=== PATIENT | male | born 1945 | race Caucasian/White ===

== ENCOUNTER 2022-09-08 14:15 | Inpatient (IN) ==
[2022-09-08] MEDS ORDERED: IOPAMIDOL 100 ML BOTTLE IV ONE (14:16)
--- NOTE | 2022-09-08 14:23 | Emergency Department Note ---
HPI General Chief complaint: Shortness of Breath/Dyspnea Stated complaint: Possible sepsis Time Seen by Provider: 09/08/22 14:18 Mode of arrival: ambulatory History of Present Illness HPI Narrative: Narrative: This is a 77-year-old male presents emergency department with a history of A-fib on Eliquis also has a pacemaker COPD pulmonary hypertension, CHF GERD and hyperlipidemia, history of lung cancer with complaints of shortness of breath. At the beginning of the month he was treated for pneumonia and placed on amoxicillin. He thought that maybe he had a little bit better for a bit but then started feeling not well again. On 09/04/2022 he was seen at urgent care got a chest x-ray and there was an impression increasing opacification laterally at the right lung base. Much of this is due to scar however patient may be developing mild pneumonia in the right lower lobe there was also concern that he was developing cellulitis over his right posterior scapula. They decided to put him on Keflex which is interesting although that does not have great coverage for pneumonia. The patient then was seen here yesterday and although Dr. Sotelo note is not done according to the patient he switched him from the Keflex to azithromycin for the antibiotic for the pneumonia. He also did a bedside ultrasound of the area of concern over his right scapula. I do not know those results since there is no documentation of it. The area is quite tender and is bulging slightly. The patient reports that that is the area where he had the radiations always been a bit tender but its been getting worse recently. He does not think that there is usually a mound/mass there. And he does not know when it started. He reports that that he has been weak over this last month and he is just not getting any better. He does feel short of breath at times and usually wears his oxygen just at night but he says sometimes during the day over the last month he has had to use his oxygen for dyspnea. He also reports that he has not had much of an appetite and has been losing weight about 15 pounds this month. He reports that sometimes he gets the sharp pain in his right upper quadrant and last time he had it was last night he currently does not have any abdominal pain. His last fever of about 100 was last week. He has not had any other fevers or chills since then. No nausea or vomiting. He has had some dysuria and urinary frequency. He tells me also that he has been having blood in his stool where there is like a ribbon within the stool as well as what he describes as hemorrhoid blood as well. [facility]. Related Data Home Medications Medication Instructions Recorded Confirmed multivitamin 1 tab-cap PO QDAY 12/26/16 09/08/22 ipratropium 0.5 mg-albuterol 3 mg 3 ml inhalation Q6H PRN 02/13/20 09/08/22 (2.5 mg base)/3 mL nebulization soln propafenone 150 mg tablet 150 mg PO BID 02/13/20 09/08/22 rosuvastatin 20 mg tablet 20 mg PO QDAY 02/13/20 09/08/22 cyanocobalamin (vitamin B-12) 1,000 mcg PO QDAY 07/11/21 09/08/22 1,000 mcg capsule spironolactone 25 mg tablet 25 mg PO QAM 07/11/21 09/08/22 apixaban 5 mg tablet 5 mg PO BID 07/23/21 09/08/22 pantoprazole 40 mg tablet,delayed 40 mg PO QAM 07/23/21 09/08/22 release sildenafil 50 mg tablet (Viagra) 50 mg PO QDAY PRN 11/21/21 09/08/22 Previous Rx's Medication Instructions Recorded guaifenesin 600 mg tablet, 600 mg PO BID #60 tabs 07/23/21 extended release 12 hr albuterol sulfate 90 mcg/actuation 2 puff inhalation Q6H PRN 11/14/21 aerosol inhaler shortness of breath or wheezing #8.5 grams tramadol 50 mg tablet 50 mg PO Q8H PRN pain #10 tabs 09/04/22 cephalexin 500 mg capsule 500 mg PO Q6H 5 days #20 caps 09/05/22 azithromycin 250 mg tablet See Rx Instructions PO .COMPLEX #6 09/07/22 (Zithromax Z-Chuy) tabs Allergies Allergy/AdvReac Type Severity Reaction Status Date / Time tetanus and diphtheria Allergy Severe Anaphylaxis Verified 09/08/22 13:43 toxoids atorvastatin Allergy Intermediate hand Verified 09/08/22 13:43 swelling Flecainide Allergy Mild Insomnia Verified 09/08/22 13:43 hydrocodone Allergy Mild Nausea Verified 09/08/22 13:43 [From Lorcet (hydrocodone)] Formoterol [From Symbicort] Allergy Unknown Unknown Verified 09/08/22 13:43 lisinopril Allergy Unknown Palpitation Verified 09/08/22 13:43 s [id number]-IRQ-[id number] Reductase Allergy Unknown Itching Verified 09/08/22 13:43 Inhibitor budesonide [From Symbicort] AdvReac Unknown ineffective/no Verified 09/08/22 13:43 allergy Pain Meds Allergy Mild Nausea Uncoded 09/08/22 13:43 Review of Systems ROS ROS Narrative: Narrative: All systems ED: reviewed and negative except as stated. [facility] Narrative Patient History Narrative: Narrative: Medical/Surgical/Family History All Active Problems (Updated 09/08/22 @ 17:44 by Davis Blanco PA-C) Pneumonia (Acute) Anemia (Acute) GI (gastrointestinal bleed) (Acute) Opacity of lung on imaging study (Acute) Shortness of Breath (Acute) Lightheadedness (Acute) Weakness (Acute) Chest pain (Acute) Dysphagia (Chronic) History of tobacco use (Chronic) History of lung cancer (Chronic) Nocturnal hypoxemia (Chronic) Difficulty clearing secretions (Chronic) History of pleural effusion (Chronic) Sick sinus syndrome (Chronic) History of tobacco abuse (Chronic) Dyslipidemia (Chronic) Non-small cell lung cancer (Chronic) Small vessel disease, cerebrovascular (Chronic) Exposure to radiation (Chronic) Abscess of intestine (Chronic) Refractive errors (Chronic) Hyperlipidemia (Chronic) Anemia (Chronic) Hypotension (Chronic) Cardiac pacemaker in situ (Chronic) intermediate current use of anticoagulant (Chronic) Dry eyes (Chronic) Age-related cataract (Chronic) COPD (chronic obstructive pulmonary disease) (Chronic) Localized osteoarthrosis (Chronic) Basal cell carcinoma of cheek (Chronic) Atrial fibrillation (Chronic) Rash (Chronic) CHF (congestive heart failure) (Chronic) GERD (gastroesophageal reflux disease) (Chronic) Pulmonary hypertension (Chronic) Left flank pain (Chronic) LLQ abdominal pain (Chronic) Acute nausea with nonbilious vomiting (Chronic) Dyspnea (Chronic) Left sided abdominal pain (Chronic) Nausea and vomiting (Chronic) Acute bacterial sinusitis (Chronic) Medical History Abscess of intestine Acute bacterial sinusitis Acute nausea with nonbilious vomiting Age-related cataract Anemia Atrial fibrillation Basal cell carcinoma of cheek Cardiac pacemaker in situ CHF (congestive heart failure) COPD (chronic obstructive pulmonary disease) Dry eyes Dyslipidemia Dyspnea Exposure to radiation GERD (gastroesophageal reflux disease) History of left heart catheterization History of pleural effusion History of tobacco abuse Hyperlipidemia Hypotension Left flank pain Left sided abdominal pain LLQ abdominal pain Localized osteoarthrosis intermediate current use of anticoagulant Nausea and vomiting Non-small cell lung cancer Pulmonary hypertension Rash Refractive errors Sick sinus syndrome Small vessel disease, cerebrovascular Surgical History History of surgery Ablation for atrial fibrillation History of surgery Pacemaker replacements in 2013 and 2019 Family History Mother , age 85 Primary oral squamous cell carcinoma Alzheimer's disease Father , age 92 CHF (congestive heart failure) Renal failure Skin cancer Grandmother Breast cancer Grandfather Brain cancer Aunt Breast cancer Social History Smoking Status: Former smoker Alcohol Intake Frequency: former alcohol drinker Substance Use: does not use Exam Narrative Narrative: Narrative: General: Alert, in no acute distress, pale Head: No trauma normocephalic Eyes: PERRLA, EOMs intact no scleral icterus or scleral injection Neck: Full range of motion, no midline tenderness ENT: Moist mucous membranes, uvula is midline. No sign of peritonsillar abscess or Haritha's angina. Cardiovascular: Regular rate and rhythm patient does have a long standing murmur. Respiratory: Absent lung sounds in right lower lobe otherwise clear to auscultation bilaterally. No rhonchi rales or wheezes, no respiratory distress Abdomen pelvis: Abdomen is soft and nontender to palpation. There is no guard ing no rebound tenderness. Negative Acevedo sign. No tenderness over McBurney's point. Neuro: Patient is alert and oriented x3 Psych: Normal affect, normal mood Skin: Warm, no rash, normal color Course Vital Signs Vital signs: Vital Signs Temperature 98.4 F 09/08/22 14:18 Pulse Rate 87 09/08/22 14:18 Respiratory Rate 22 09/08/22 14:18 Blood Pressure 119/64 09/08/22 14:18 Pulse Oximetry (%) 97 09/08/22 14:18 Oxygen Delivery Method Room Air 09/08/22 14:18 Temperature 98.4 F 09/08/22 14:18 Pulse Rate 83 09/08/22 17:46 Respiratory Rate 23 H 09/08/22 16:11 Blood Pressure 113/52 09/08/22 17:46 Pulse Oximetry (%) 93 09/08/22 17:46 Oxygen Delivery Method Room Air 09/08/22 14:18 MDM MDM Narrative Medical decision making narrative: Narrative: Differential diagnosis: Pneumonia, sepsis, pulmonary mass, abdominal mass, GI bleed, UTI Independent lab ordered and reviewed by me: The CBC shows a leukocytosis to 13.0 with left shift, patient H&H is low at 7.0 and 22.2 last H&H June 13, 2021 was 12.8 and 39.9 CMP is unremarkable VBG shows alkalosis with a base excess of 8.0 Lactic acid is 0.9 low suspicion for sepsis Procalcitonin is 0.22 UA shows no sign of infection CT of abdomen pelvis IMPRESSION: 1. Subtotal pneumonectomy in the right lung, as treatment for lung carcinoma with volume loss and dense consolidated fibrosis in the residual right lung-as previously seen. A small patchy infiltrate is posterior right lower lobe is new. No evidence recurrent malignancy. 2. MALUNIFIED old fractures the right upper ribs with associated sclerosis. There is also associated sclerosis of the right scapular body. 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 There is soft tissue swelling over the lateral scapular border which is unchanged and presumably fibrosis or edema. 3. No abnormality seen in the abdomen or pelvis 4. 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 The patient has also been having blood in his stool for the last month. He has a outpatient [facility] I think that this is most likely the reason for his dyspnea and overall weakness. He is on Eliquis currently for A-fib. I spoke with Dr. Zamora our GI provider who would like to admit the patient for IV antibiotics and then he will scope him in the morning. I think that this is reasonable since that the patient has been having a bleed for the last month and is hemodynamically stable not tachycardic or hypotensive and is a not hypoxic. I spoke with the hospitalist Dr. Cuevas who agreed to admit the patient for further evaluation and treatment Lab Data 09/08/22 15:40 09/08/22 15:40 Labs: Lab Results 09/08/22 09/08/22 09/08/22 Range/Units 14:57 15:35 15:40 WBC 13.0 H (4.5-11.0) K/mcL RBC 2.20 L (4.63-6.08) M/mcL Hgb 7.0 L* (13.7-17.5) g/dL Hct 22.2 L (40.1-51.0) % MCV 100.9 H (80.0-100.0) fL MCH 31.8 (26.0-34.0) pg MCHC 31.5 (31.0-36.0) g/dL RDW 13.4 (11.5-14.5) % Plt Count 610 H (140-440) K/mcL MPV 8.6 L (8.8-12.5) fL Immature Gran % (Auto) 0.8 H (0.0-0.5) % Neut % (Auto) 82.7 H (38.0-78.0) % Lymph % (Auto) 8.0 L (15.5-49.0) % [place] % (Auto) 7.8 (1.0-12.0) % Eos % (Auto) 0.3 (0.0-7.0) % Baso % (Auto) 0.4 (0.0-2.0) % Lymph # (Auto) 1.04 L (1.50-4.80) K/mcL [place] # (Auto) 1.02 H (0.10-0.90) K/mcL Eos # (Auto) 0.04 (0.00-0.70) K/mcL Baso # (Auto) 0.05 (0.00-0.30) K/mcL Immature Gran # 0.11 H (0.00-0.05) K/mcl Absolute Neutrophils 10.75 H (1.80-8.00) K/mcL POC VBG pH 7.44 H (7.32-7.42) POC VBG pCO2 at Temp 47.3 (41-51) POC VBG pO2 14 L (25-40) POC VBG HCO3 32.2 H (24-28) POC VBG Total CO2 34.0 H (25-29) POC Venous O2 Sat 18.0 L (40-70) POC VBG Base Excess 8.0 H* (-2-2) VBG Lactic Acid 0.9 (0.5-2) Sodium (133-145) mmol/L Potassium (3.3-5.1) mmol/L Chloride (96-108) mmol/L Carbon Dioxide (22-30) mmol/L Anion Gap (8.0-16.0) BUN (8-23) mg/dL Creatinine (0.7-1.2) mg/dL POC Creatinine (0.6-1.2) GFR Calculation Glucose (70-105) mg/dL Calcium (8.6-10.4) mg/dL Total Bilirubin (0.1-1.0) mg/dL AST (<40) U/L ALT (<40) U/L Alkaline Phosphatase (39-117) U/L Total Protein (5.9-8.4) gm/dL Albumin (3.2-5.2) gm/dL Globulin (2.2-3.7) gm/dL Albumin/Globulin Ratio (1.0-2.3) Procalcitonin (<0.10) ng/mL Urine Color Yellow Urine Appearance Clear (Clear) Urine pH 6.0 (5.0-9.0) Ur Specific [place] 1.013 (1.000-1.035) Urine Protein Negative (Negative) mg/dL Urine Glucose (UA) Negative (Negative) mg/dL Urine Ketones Negative (Negative) mg/dL Urine Occult Blood Negative (Negative) mg/dL Urine Nitrate Negative (Negative) Urine Bilirubin Negative (Negative) mg/dL Urine Urobilinogen Negative mg/dL Ur Leukocyte Esterase Negative (Negative) /uL Urine RBC < 1 (0-3) /hpf Urine WBC 0 (0-4) /hpf Ur Squamous Epith Cells 0 (0-4) /hpf Urine Bacteria None (0) /hpf Ur Culture Indicated? No 09/08/22 09/08/22 09/08/22 Range/Units 15:40 15:40 15:43 WBC (4.5-11.0) K/mcL RBC (4.63-6.08) M/mcL Hgb (13.7-17.5) g/dL Hct (40.1-51.0) % MCV (80.0-100.0) fL MCH (26.0-34.0) pg MCHC (31.0-36.0) g/dL RDW (11.5-14.5) % Plt Count (140-440) K/mcL MPV (8.8-12.5) fL Immature Gran % (Auto) (0.0-0.5) % Neut % (Auto) (38.0-78.0) % Lymph % (Auto) (15.5-49.0) % [place] % (Auto) (1.0-12.0) % Eos % (Auto) (0.0-7.0) % Baso % (Auto) (0.0-2.0) % Lymph # (Auto) (1.50-4.80) K/mcL [place] # (Auto) (0.10-0.90) K/mcL Eos # (Auto) (0.00-0.70) K/mcL Baso # (Auto) (0.00-0.30) K/mcL Immature Gran # (0.00-0.05) K/mcl Absolute Neutrophils (1.80-8.00) K/mcL POC VBG pH (7.32-7.42) POC VBG pCO2 at Temp (41-51) POC VBG pO2 (25-40) POC VBG HCO3 (24-28) POC VBG Total CO2 (25-29) POC Venous O2 Sat (40-70) POC VBG Base Excess (-2-2) VBG Lactic Acid (0.5-2) Sodium 134 (133-145) mmol/L Potassium 5.0 (3.3-5.1) mmol/L Chloride 98 (96-108) mmol/L Carbon Dioxide 29 (22-30) mmol/L Anion Gap 7.0 L (8.0-16.0) BUN 15 (8-23) mg/dL Creatinine 0.9 (0.7-1.2) mg/dL POC Creatinine 1.1 (0.6-1.2) GFR Calculation 82 Glucose 98 (70-105) mg/dL Calcium 9.1 (8.6-10.4) mg/dL Total Bilirubin 0.3 (0.1-1.0) mg/dL AST 28 (<40) U/L ALT 37 (<40) U/L Alkaline Phosphatase 165 H (39-117) U/L Total Protein 7.1 (5.9-8.4) gm/dL Albumin 2.8 L (3.2-5.2) gm/dL Globulin 4.3 H (2.2-3.7) gm/dL Albumin/Globulin Ratio 0.7 L (1.0-2.3) Procalcitonin 0.22 H (<0.10) ng/mL Urine Color Urine Appearance (Clear) Urine pH (5.0-9.0) Ur Specific [place] (1.000-1.035) Urine Protein (Negative) mg/dL Urine Glucose (UA) (Negative) mg/dL Urine Ketones (Negative) mg/dL Urine Occult Blood (Negative) mg/dL Urine Nitrate (Negative) Urine Bilirubin (Negative) mg/dL Urine Urobilinogen mg/dL Ur Leukocyte Esterase (Negative) /uL Urine RBC (0-3) /hpf Urine WBC (0-4) /hpf Ur Squamous Epith Cells (0-4) /hpf Urine Bacteria (0) /hpf Ur Culture Indicated? Discharge Plan Patient/Caregiver Discharge Instructions Pt seen by SEED BUYER/PA only: Yes Clinical Impression: Pneumonia, Anemia, GI (gastrointestinal bleed) Activity: increase activity as tolerated Patient Disposition: Xfer As Inpt ([facility]) Condition: Serious Follow up with: Juan Craig ARNP [Primary Care Provider] - Prescriptions: No Action albuterol sulfate 90 mcg/actuation HFA aerosol inhaler 2 puff inhalation Q6H PRN (Reason: shortness of breath or wheezing) Qty: 8.5 11RF cyanocobalamin (vitamin B-12) 1,000 mcg capsule 1,000 mcg PO QDAY spironolactone 25 mg tablet 25 mg PO QAM multivitamin capsule 1 tab-cap PO QDAY pantoprazole 40 mg tablet,delayed release (DR/EC) 40 mg PO QAM sildenafil [Viagra] 50 mg tablet 50 mg PO QDAY PRN Rx Instructions: administer 30 minutes to 4 hours before activity tramadol 50 mg tablet 50 mg PO Q8H PRN (Reason: pain) Qty: 10 0RF cephalexin 500 mg capsule 500 mg PO Q6H 5 Days Qty: 20 0RF ipratropium-albuterol 0.5 mg-3 mg(2.5 mg base)/3 mL solution for nebulization 3 ml INHALATION Q6H PRN rosuvastatin 20 mg tablet 20 mg PO QDAY propafenone 150 mg tablet 150 mg PO BID apixaban 5 mg tablet 5 mg PO BID Breztri Aerosphere 160-9-4.8 mcg/actuation HFA aerosol inhaler 0RF guaifenesin 600 mg tablet extended release 12hr 600 mg PO BID Qty: 60 2RF fluticasone furoate-vilanterol [Breo Ellipta] 100-25 mcg/dose blister with device 0RF azithromycin [Zithromax Z-Chuy] 250 mg tablet See Rx Instructions .ROUTE .COMPLEX Qty: 6 0RF Rx Instructions: For 250 mg dose pack: take 500 mg today (day 1), then 250 mg for 4 days (days 2-5) For this patient encounter, I reviewed the midlevel providers documentation, medical decisionmaking, and treatment plan. I discussed the case with the midlevel provider, although I did not personally evaluate the patient.
[2022-09-08 16:12] LABS: Appearance,Urine CLEAR (Clear); Bilirubin,Urine Negative (Negative); Color,Urine YELLOW; Culture Indicated,Urine No; Glucose,Urine (UA) Negative (Negative); Ketones,Urine Negative (Negative); Leukocyte Esterase,Urine Negative /uL (Negative); Nitrate,Urine Negative (Negative); Protein,Urine Negative (Negative); Specific Gravity,Urine 1.013 (1.000-1.035); Urine Blood Negative (Negative); Urine RBC < 1 /hpf (0-3); Urine Squamous Epithelial Cell 0 /hpf (0-4); Urine WBC 0 /hpf (0-4); Urobilinogen,Urine Negative
[2022-09-08 16:13] LABS: Basophils # (Auto) 0.05 K/mcL (0.00-0.30); Basophils % (Auto) 0.4 % (0.0-2.0); Eosinophils # (Auto) 0.04 K/mcL (0.00-0.70); Eosinophils % (Auto) 0.3 % (0.0-7.0); Hematocrit 22.2 % (40.1-51.0); Lymphocytes # (Auto) 1.04 K/mcL (1.50-4.80); Mean Cell Volume 100.9 fL (80.0-100.0); Mean Corpuscular HGB Conc 31.5 g/dL (31.0-36.0); Mean Platelet Volume 8.6 fL (8.8-12.5); Monocytes # (Auto) 1.02 K/mcL (0.10-0.90); Monocytes % (Auto) 7.8 % (1.0-12.0); Neutrophils % (Auto) 82.7 % (38.0-78.0); Platelet Count 610 K/mcL (140-440); Red Cell Distribution Width 13.4 % (11.5-14.5)
[2022-09-08 16:27] LABS: ALT/SGPT 37 U/L (<40); AST/SGOT 28 U/L (<40); Albumin 2.8 gm/dL (3.2-5.2); Albumin/Globulin Ratio 0.7 (1.0-2.3); Alkaline Phosphatase 165 U/L (39-117); Bilirubin,Total 0.3 mg/dL (0.1-1.0); Blood Urea Nitrogen 15 mg/dL (8-23); Calcium 9.1 mg/dL (8.6-10.4); Carbon Dioxide 29 mmol/L (22-30); Chloride 98 mmol/L (96-108); Globulin 4.3 gm/dL (2.2-3.7); Glomerular Filtration Rate 82; Glucose 98 mg/dL (70-105)
[2022-09-08] MEDS ORDERED: 0.9 % SODIUM CHLORIDE 250 ML IV SCH (16:45)
--- NOTE | 2022-09-08 17:09 | Cat Scan Report ---
CLINICAL INFORMATION: Right parascapular mass right upper quadrant pain weight loss. Pneumonia history of right lobectomy for lung cancer. COMPARISON: Chest abdomen and pelvic CT 08/07/2022 TECHNIQUE: Enteric contrast was utilized. 80 cc of Isovue-370 were injected intravenously, and 50 seconds later, 0.625 mm helical slices were obtained from the lung apices through the subtrochanteric regions of the femurs. Following reconstruction, 2.5 mm sagittal, coronal and axial reformatted images were processed and reviewed at multiple windows and levels. 7 mm MIP reconstructions were obtained through the lungs to optimize nodule detection.The exam was performed using radiation dose optimization techniques including, but not limited to, automated exposure control, adjustment of the mA and/or kV according to patient size and use of iterative reconstruction technique. FINDINGS: Pulmonary parenchymal windows show right subtotal pneumonectomy changes with associated volume loss featuring marked elevation of the right diaphragm and right shift of the cardiomediastinal silhouette. Dense fibrotic consolidation in the residual right upper, right middle and lower lobes are identical to the previous exam. There is a small patchy infiltrate in the periphery of the right lower lobe which is new from the previous exam. Moderate centrilobular emphysema is seen in the left lung as before. Mediastinal windows show the heart is grossly normal in size and configuration. Very heavy calcific plaque present within the mid LAD coronary artery. There is aortic valve calcification. Pacemaker leads in satisfactory position. The pulmonary arteries are normal diameter without evidence of embolus. Thoracic aorta is also normal diameter and well-opacified. There is no adenopathy in the mediastinal, hilar or axillary regions. Esophagus is grossly normal. The thyroid is unremarkable. Abdominal images show the gallbladder and bile ducts, liver, both kidneys, adrenal glands, spleen, pancreas and aorta, including aortic branches, are normal in size, configuration and attenuation without focal lesion. There is no free air, free fluid or adenopathy. Pelvic images show normal urinary bladder prostate and seminal vesicles. The stomach, small bowel, appendix region and large bowel are grossly normal. Bone windows show right thoracotomy with multiple nonunified old fractures of the posterior right first through sixth ribs with associated sclerosis be related to radiation.. Moderate sclerosis in the right scapular body is also likely related to prior radiation. No change Soft tissue thickening overlying the medial scapula is unchanged and likely represents fibrosis. No osseous abnormality seen in the abdomen or pelvis. IMPRESSION: 1. Subtotal pneumonectomy in the right lung, as treatment for lung carcinoma with volume loss and dense consolidated fibrosis in the residual right lung-as previously seen. A small patchy infiltrate is posterior right lower lobe is new. No evidence recurrent malignancy. 2. MALUNIFIED old fractures the right upper ribs with associated sclerosis. There is also associated sclerosis of the right scapular body. 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 There is soft tissue swelling over the lateral scapular border which is unchanged and presumably fibrosis or edema. 3. No abnormality seen in the abdomen or pelvis 4. 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
[2022-09-08] MEDS ORDERED: AZITHROMYCIN 500 MG in DEXTROSE 5% IN WATER 250 ML IV ONE (17:25)
[2022-09-08] MEDS ORDERED: cefTRIAXone 1 GM VIAL IV ONE (17:25)
[2022-09-08] MEDS ORDERED: ACETAMINOPHEN 325 MG TABLET PO ONE (18:43)
--- NOTE | 2022-09-08 19:21 | Internal Med History&Physical ---
HPI History of Present Illness Patient information: Note initiated : 09/08/22 at 7:09 pm Service Date, if different from initiated Date: [] Patient: Sandro Viveros a 77 y/o M admitted on for Possible sepsis. Chief Complaint: [shortness of breath, cough] Chief complaint: shortness of breath, cough History of present illness: Mr. Viveros is a 77 year old M history of lung cancer status post chemoradiation, atrial fibrillation on Eliquis, COPD, dyslipidemia, presenting with 3-week history of shortness of breath, productive cough, fever, chills. He was being diagnosed in outpatient clinic with pneumonia and was being prescribed Keflex for 10 days for which he finished the therapy but he still coming of worsening symptoms including shortness of breath, productive cough with clear sputum, subjective fever and chills. He was also having right shoulder pain. [facility] prescribed additional antibiotics with azithromycin which he just started today. In additions, patient also has experienced black stool bloody stool ever since he started taking Keflex. He is also on Eliquis and he last took it today for atrial fibrillation's. He saw GI specialist Dr. Fletcher who was trying to schedule outpatient elective colonoscopy but it has not happened yet. Vital signs at ED presentation with normal meds. Labs significant for leukocytosis with WBC 13.0. Hemoglobin and hematocrit 7.0 and 22.2, respectively. Serum lactic acid 0.9, procalcitonin level 0.22. Respiratory panel with COVID, influenza a and B, and RSV pending. Chest x-ray showing posterior right lower lobe infiltrate suggesting of new pneumonia. Admission request is called for pneumonia as well as symptomatic rectal bleeding, likely lower GI bleeding. Constitutional Constitutional: Present chills, fatigue, fever(s) and weakness; Absent excessive sweating EENT Eyes: Absent blurry vision, change in vision, loss of vision or other visual disturbances Ears: Absent decreased hearing or tinnitus Nose, mouth and throat: Absent abnormal hearing, dry mouth, headache(s), nasal congestion or sore throat Cardiovascular Cardiovascular: Absent chest pain, chest pain at rest, edema, irregular heart rhythm or palpatations Respiratory Respiratory: Present cough, dyspnea and excessive phlegm production; Absent wheezing Gastrointestinal Gastrointestinal: Absent abdominal pain, constipation, diarrhea, nausea or vomiting Additional comments: Black and bloody stool Musculoskeletal Musculoskeletal: Absent back pain, deformity, limited range of motion, muscle cramps, muscle weakness or numbness Integumentary Integumentary: Absent lesions, rash or wounds Neurological Neurological: Absent focal weakness, headache(s) or numbness Psychiatric Psychiatric: Absent anxiety, depression or hallucinations PFSH PFSH All Active Problems (Updated 09/08/22 @ 19:24 by Percy Cuevas MD) COPD exacerbation (Acute) Pneumonia (Acute) Anemia (Acute) GI (gastrointestinal bleed) (Acute) Opacity of lung on imaging study (Acute) Shortness of Breath (Acute) Lightheadedness (Acute) Weakness (Acute) Chest pain (Acute) Dysphagia (Chronic) History of tobacco use (Chronic) History of lung cancer (Chronic) Nocturnal hypoxemia (Chronic) Difficulty clearing secretions (Chronic) History of pleural effusion (Chronic) Sick sinus syndrome (Chronic) History of tobacco abuse (Chronic) Dyslipidemia (Chronic) Non-small cell lung cancer (Chronic) Small vessel disease, cerebrovascular (Chronic) Exposure to radiation (Chronic) Abscess of intestine (Chronic) Refractive errors (Chronic) Hyperlipidemia (Chronic) Anemia (Chronic) Hypotension (Chronic) Cardiac pacemaker in situ (Chronic) longterm current use of anticoagulant (Chronic) Dry eyes (Chronic) Age-related cataract (Chronic) COPD (chronic obstructive pulmonary disease) (Chronic) Localized osteoarthrosis (Chronic) Basal cell carcinoma of cheek (Chronic) Atrial fibrillation (Chronic) Rash (Chronic) CHF (congestive heart failure) (Chronic) GERD (gastroesophageal reflux disease) (Chronic) Pulmonary hypertension (Chronic) Left flank pain (Chronic) LLQ abdominal pain (Chronic) Acute nausea with nonbilious vomiting (Chronic) Dyspnea (Chronic) Left sided abdominal pain (Chronic) Nausea and vomiting (Chronic) Acute bacterial sinusitis (Chronic) Medical History Abscess of intestine Acute bacterial sinusitis Acute nausea with nonbilious vomiting Age-related cataract Anemia Atrial fibrillation Basal cell carcinoma of cheek Cardiac pacemaker in situ CHF (congestive heart failure) COPD (chronic obstructive pulmonary disease) Dry eyes Dyslipidemia Dyspnea Exposure to radiation GERD (gastroesophageal reflux disease) History of left heart catheterization History of pleural effusion History of tobacco abuse Hyperlipidemia Hypotension Left flank pain Left sided abdominal pain LLQ abdominal pain Localized osteoarthrosis longterm current use of anticoagulant Nausea and vomiting Non-small cell lung cancer Pulmonary hypertension Rash Refractive errors Sick sinus syndrome Small vessel disease, cerebrovascular Surgical History History of surgery Ablation for atrial fibrillation History of surgery Pacemaker replacements in 2013 and 2019 Family History Mother , age 85 Primary oral squamous cell carcinoma Alzheimer's disease Father , age 92 CHF (congestive heart failure) Renal failure Skin cancer Grandmother Breast cancer Grandfather Brain cancer Aunt Breast cancer Social History service: Yes occupational status: disabled smoking status: Former smoker quit date: 05/17/81 pack-years: 18 alcohol intake frequency: former alcohol drinker substance use type: does not use MEDS/ALLERGIES Home Medications and Allergies Home Medications Medication Instructions Recorded Confirmed Type multivitamin 1 tab-cap PO QDAY 12/26/16 09/08/22 History ipratropium 0.5 mg-albuterol 3 mg 3 ml inhalation Q6H PRN 02/13/20 09/08/22 History (2.5 mg base)/3 mL nebulization soln propafenone 150 mg tablet 150 mg PO BID 02/13/20 09/08/22 History rosuvastatin 20 mg tablet 20 mg PO QDAY 02/13/20 09/08/22 History cyanocobalamin (vitamin B-12) 1,000 mcg PO QDAY 07/11/21 09/08/22 History 1,000 mcg capsule spironolactone 25 mg tablet 25 mg PO QAM 07/11/21 09/08/22 History apixaban 5 mg tablet 5 mg PO BID 07/23/21 09/08/22 History guaifenesin 600 mg tablet, 600 mg PO BID #60 tabs 07/23/21 09/08/22 Rx extended release 12 hr pantoprazole 40 mg tablet,delayed 40 mg PO QAM 07/23/21 09/08/22 History release albuterol sulfate 90 mcg/actuation 2 puff inhalation Q6H PRN 11/14/21 09/08/22 Rx aerosol inhaler shortness of breath or wheezing #8.5 grams sildenafil 50 mg tablet (Viagra) 50 mg PO QDAY PRN 11/21/21 09/08/22 History tramadol 50 mg tablet 50 mg PO Q8H PRN pain #10 tabs 09/04/22 09/08/22 Rx cephalexin 500 mg capsule 500 mg PO Q6H 5 days #20 caps 09/05/22 09/08/22 Rx azithromycin 250 mg tablet See Rx Instructions PO .COMPLEX #6 09/07/22 09/08/22 Rx (Zithromax Z-Chuy) tabs Allergies Allergy/AdvReac Type Severity Reaction Status Date / Time tetanus and diphtheria Allergy Severe Anaphylaxis Verified 09/08/22 13:43 toxoids atorvastatin Allergy Intermediate hand Verified 09/08/22 13:43 swelling Flecainide Allergy Mild Insomnia Verified 09/08/22 13:43 hydrocodone Allergy Mild Nausea Verified 09/08/22 13:43 [From Lorcet (hydrocodone)] Formoterol [From Symbicort] Allergy Unknown Unknown Verified 09/08/22 13:43 lisinopril Allergy Unknown Palpitation Verified 09/08/22 13:43 s [id number]-BEO-FcA Reductase Allergy Unknown Itching Verified 09/08/22 13:43 Inhibitor budesonide [From Symbicort] AdvReac Unknown ineffective/no Verified 09/08/22 13:43 allergy Pain Meds Allergy Mild Nausea Uncoded 09/08/22 13:43 EXAM Constitutional Vitals: Temp Pulse Resp BP Pulse Ox O2 Del Method 36.9 C 87 23 H 100/62 98 Room Air 09/08/22 14:18 09/08/22 18:30 09/08/22 16:11 09/08/22 18:30 09/08/22 18:30 09/08/22 14:18 General appearance: cooperative and no acute distress Head Head exam: Present atraumatic and normocephalic Eye Eye exam: Present EOMI and PERRL ENT ENT exam: Present mucous membranes moist, normal exam and normal external ear exam Neck Neck exam: Present normal inspection; Absent lymphadenopathy, tenderness or thyromegaly Respiratory Respiratory exam: Present decreased breath sounds; Absent accessory muscle use, respiratory distress or wheezes Cardiovascular Cardiovascular exam: Present irregular rhythm; Absent JVD GI/Abdominal GI/Abdominal exam: Present normal bowel sounds and soft; Absent organomegaly or tenderness Rectal Rectal exam: Present deferred Extremities Exam Extremities exam: Present full ROM, normal capillary refill and normal inspection; Absent tenderness Neurological Exam Neurological exam: Present alert, CN II-XII intact and oriented X3; Absent motor sensory deficit Psychiatric Psychiatric exam: Present normal affect and normal mood; Absent anxious or depressed Skin Skin exam: Present dry and intact DATA Data Completed and Pending Labs: Labs from last 24 hours 09/08/22 09/08/22 09/08/22 15:43 15:40 15:40 WBC RBC Hgb Hct MCV MCH MCHC RDW Plt Count MPV Immature Gran % (Auto) Neut % (Auto) Lymph % (Auto) [place] % (Auto) Eos % (Auto) Baso % (Auto) Lymph # (Auto) [place] # (Auto) Eos # (Auto) Baso # (Auto) Immature Gran # Absolute Neutrophils POC VBG pH POC VBG pCO2 at Temp POC VBG pO2 POC VBG HCO3 POC VBG Total CO2 POC Venous O2 Sat POC VBG Base Excess VBG Lactic Acid Sodium 134 Potassium 5.0 Chloride 98 Carbon Dioxide 29 Anion Gap 7.0 L BUN 15 Creatinine 0.9 POC Creatinine 1.1 GFR Calculation 82 Glucose 98 Calcium 9.1 Total Bilirubin 0.3 AST 28 ALT 37 Alkaline Phosphatase 165 H Total Protein 7.1 Albumin 2.8 L Globulin 4.3 H Albumin/Globulin Ratio 0.7 L Procalcitonin 0.22 H Urine Color Urine Appearance Urine pH Ur Specific [place] Urine Protein Urine Glucose (UA) Urine Ketones Urine Occult Blood Urine Nitrate Urine Bilirubin Urine Urobilinogen Ur Leukocyte Esterase Urine RBC Urine WBC Ur Squamous Epith Cells Urine Bacteria Ur Culture Indicated? 09/08/22 09/08/22 09/08/22 15:40 15:35 14:57 WBC 13.0 H RBC 2.20 L Hgb 7.0 L* Hct 22.2 L MCV 100.9 H MCH 31.8 MCHC 31.5 RDW 13.4 Plt Count 610 H MPV 8.6 L Immature Gran % (Auto) 0.8 H Neut % (Auto) 82.7 H Lymph % (Auto) 8.0 L [place] % (Auto) 7.8 Eos % (Auto) 0.3 Baso % (Auto) 0.4 Lymph # (Auto) 1.04 L [place] # (Auto) 1.02 H Eos # (Auto) 0.04 Baso # (Auto) 0.05 Immature Gran # 0.11 H Absolute Neutrophils 10.75 H POC VBG pH 7.44 H POC VBG pCO2 at Temp 47.3 POC VBG pO2 14 L POC VBG HCO3 32.2 H POC VBG Total CO2 34.0 H POC Venous O2 Sat 18.0 L POC VBG Base Excess 8.0 H* VBG Lactic Acid 0.9 Sodium Potassium Chloride Carbon Dioxide Anion Gap BUN Creatinine POC Creatinine GFR Calculation Glucose Calcium Total Bilirubin AST ALT Alkaline Phosphatase Total Protein Albumin Globulin Albumin/Globulin Ratio Procalcitonin Urine Color Yellow Urine Appearance Clear Urine pH 6.0 Ur Specific [place] 1.013 Urine Protein Negative Urine Glucose (UA) Negative Urine Ketones Negative Urine Occult Blood Negative Urine Nitrate Negative Urine Bilirubin Negative Urine Urobilinogen Negative Ur Leukocyte Esterase Negative Urine RBC < 1 Urine WBC 0 Ur Squamous Epith Cells 0 Urine Bacteria None Ur Culture Indicated? No A/P Assessment and plan (1) Pneumonia: Status: Acute (2) Anemia: Status: Acute (3) GI (gastrointestinal bleed): Status: Acute (4) History of lung cancer: Status: Chronic Comment: Right (5) Dyslipidemia: Status: Chronic (6) Atrial fibrillation: Status: Chronic Qualifiers: Atrial fibrillation type: unspecified chronic Qualified Code(s): I48.20 - Chronic atrial fibrillation, unspecified (7) Rash: Status: Chronic (8) COPD exacerbation: Status: Acute Narrative A/P Narrative: Assessment and Plans: 1. Right lower lobe pneumonia, failed outpatient antibiotics therapy (Keflex): Observation med surg telemetry Serial lactic acid Procalcitonin level Blood culture cbc w/ auto diff in the morning to trend WBC Respiratory panel pending Rocephin Zithromax NS@75cc/hr 2. Rectal bleeding/lower GI bleeding, likely from hemorrhoid: GI Dr. Gresham for potential colonoscopy 1 unit pRBC transfusion cbc q12hr to trend H/H Protonix Hold Eliquis 3. h/o congestive heart failure: Hold Aldactone NS@75cc/hr 4. Atrial fibrillation: Propafenone Hold Eliquis Lopressor 5mg IV q1hr PRN SBP>120bpm, hold if SBP<90 and/or DBP<50mmHg 5. h/o lung cancer s/p chemoradiation: Continue to monitor 6. h/o COPD, cannot rule out exacerbation: Azithromycin DuoNEB NEB Prednisone Supplemental oxygen therapy titrate to achieve spo2>=88% 7. Mixed dyslipidemia: Continue statin therapy GI ppx: Protonix DVT ppx: SCDs Code status: no chest compression Prognosis: guarded Disposition: observation med surg tele Time Spent With Patient Time: Total time spent is greater than 50% in coordination of care (as documented) at patient's floor/unit and/or counseling patient: Initial: Total time with patient: 55 - 74 minutes
[2022-09-08] MEDS ORDERED: ONDANSETRON 4 MG/2 ML VIAL IV PRN (20:56)
[2022-09-08] MEDS ORDERED: traZODone HCL 50 MG TABLET PO PRN (20:56)
[2022-09-08] MEDS ORDERED: IPRATROPIUM/ALBUTEROL 3 ML AMPUL.NEB NEB PRN (20:56)
[2022-09-08] MEDS ORDERED: METOPROLOL TARTRATE 5 MG/5 ML VIAL IV PRN (20:56)
[2022-09-08] MEDS ORDERED: ACETAMINOPHEN 325 MG TABLET PO PRN (20:56)
[2022-09-08] MEDS ORDERED: cefTRIAXone 1 GM in DEXTROSE 5% IN WATER 50 ML IV SCH (20:56)
[2022-09-08] MEDS ORDERED: KETAMINE 50 MG/ML ML IV PRN (21:06)
[2022-09-08] MEDS ORDERED: MIDAZOLAM 2 MG/2 ML VIAL IV SCH (21:15)
[2022-09-08] MEDS ORDERED: PROPOFOL 200 MG/20 ML VIAL IV SCH (21:15)
--- NOTE | 2022-09-08 21:15 | Internal Medicine Consult Note ---
HPI Date of Consult Consult Date: 09/08/22 Primary Care Provider: Juan Craig Consult Narrative Patient Information: Note initiated : 09/08/22 at 9:07 pm Service Date, if different from initiated Date: [] Patient: Sandro Viveros 77 y/o M admitted on 09/08/22 for Possible sepsis. Chief Complaint: [hematochezia ] Mr Viveros is 77 year old white male with Afib on Eliquis, with a history of lung cancer, CHF, COPD, hyperlipidemia, s/p pacemaker who presented for evaluation of fatigue, Right shoulder pain and possible sepsis with hematochezia. He developed an upper respiratory infection / with anorexia. Shortly after a course of antibiotic therapy, he began to have soft bowel movements 2 times a daily with hematochezia mixed with stool. He denies any NSAID use. He endorsed mild RUQ pain, anorexia and a weight loss of 12lbs. CT in July showed gastric thickening. Last colonoscopy was over 10 years ago. The last time he saw hematochezia was this morning. Stool is formed and "dark" but he denies melena, hematemesis or vomiting. Presented to ER with signs of sepsis and possible pneumonia. WBC 13,000 with granulocytosis with left shift, Hgb 7 (receiving 1 U PRBC now), elevated procalcitonin. Albumin low 2.8. ALP elevated 165 normal bilirubin. cc:: CC: Percy Cuevas MD Review of Systems All systems: reviewed and no additional remarkable complaints except as stated PFSH PFSH All Active Problems (Updated 09/08/22 @ 19:24 by Percy Cuevas MD) COPD exacerbation (Acute) Pneumonia (Acute) Anemia (Acute) GI (gastrointestinal bleed) (Acute) Opacity of lung on imaging study (Acute) Shortness of Breath (Acute) Lightheadedness (Acute) Weakness (Acute) Chest pain (Acute) Dysphagia (Chronic) History of tobacco use (Chronic) History of lung cancer (Chronic) Nocturnal hypoxemia (Chronic) Difficulty clearing secretions (Chronic) History of pleural effusion (Chronic) Sick sinus syndrome (Chronic) History of tobacco abuse (Chronic) Dyslipidemia (Chronic) Non-small cell lung cancer (Chronic) Small vessel disease, cerebrovascular (Chronic) Exposure to radiation (Chronic) Abscess of intestine (Chronic) Refractive errors (Chronic) Hyperlipidemia (Chronic) Anemia (Chronic) Hypotension (Chronic) Cardiac pacemaker in situ (Chronic) halfway current use of anticoagulant (Chronic) Dry eyes (Chronic) Age-related cataract (Chronic) COPD (chronic obstructive pulmonary disease) (Chronic) Localized osteoarthrosis (Chronic) Basal cell carcinoma of cheek (Chronic) Atrial fibrillation (Chronic) Rash (Chronic) CHF (congestive heart failure) (Chronic) GERD (gastroesophageal reflux disease) (Chronic) Pulmonary hypertension (Chronic) Left flank pain (Chronic) LLQ abdominal pain (Chronic) Acute nausea with nonbilious vomiting (Chronic) Dyspnea (Chronic) Left sided abdominal pain (Chronic) Nausea and vomiting (Chronic) Acute bacterial sinusitis (Chronic) Medical History Abscess of intestine Acute bacterial sinusitis Acute nausea with nonbilious vomiting Age-related cataract Anemia Atrial fibrillation Basal cell carcinoma of cheek Cardiac pacemaker in situ CHF (congestive heart failure) COPD (chronic obstructive pulmonary disease) Dry eyes Dyslipidemia Dyspnea Exposure to radiation GERD (gastroesophageal reflux disease) History of left heart catheterization History of pleural effusion History of tobacco abuse Hyperlipidemia Hypotension Left flank pain Left sided abdominal pain LLQ abdominal pain Localized osteoarthrosis intermediate card tender current use of anticoagulant Nausea and vomiting Non-small cell lung cancer Pulmonary hypertension Rash Refractive errors Sick sinus syndrome Small vessel disease, cerebrovascular Surgical History History of surgery Ablation for atrial fibrillation History of surgery Pacemaker replacements in 2013 and 2019 Family History Mother , age 85 Primary oral squamous cell carcinoma Alzheimer's disease Father , age 92 CHF (congestive heart failure) Renal failure Skin cancer Grandmother Breast cancer Grandfather Brain cancer Aunt Breast cancer Social History service: Yes occupational status: disabled smoking status: Former smoker quit date: 05/17/81 pack-years: 18 alcohol intake frequency: former alcohol drinker substance use type: does not use MEDS/ALLERGIES Home Medications and Allergies Home Medications Medication Instructions Recorded Confirmed Type multivitamin 1 tab-cap PO QDAY 12/26/16 09/08/22 History ipratropium 0.5 mg-albuterol 3 mg 3 ml inhalation Q6H PRN 02/13/20 09/08/22 History (2.5 mg base)/3 mL nebulization soln propafenone 150 mg tablet 150 mg PO BID 02/13/20 09/08/22 History rosuvastatin 20 mg tablet 20 mg PO QDAY 02/13/20 09/08/22 History cyanocobalamin (vitamin B-12) 1,000 mcg PO QDAY 07/11/21 09/08/22 History 1,000 mcg capsule spironolactone 25 mg tablet 25 mg PO QAM 07/11/21 09/08/22 History apixaban 5 mg tablet 5 mg PO BID 07/23/21 09/08/22 History guaifenesin 600 mg tablet, 600 mg PO BID #60 tabs 07/23/21 09/08/22 Rx extended release 12 hr pantoprazole 40 mg tablet,delayed 40 mg PO QAM 07/23/21 09/08/22 History release albuterol sulfate 90 mcg/actuation 2 puff inhalation Q6H PRN 11/14/21 09/08/22 Rx aerosol inhaler shortness of breath or wheezing #8.5 grams sildenafil 50 mg tablet (Viagra) 50 mg PO QDAY PRN 11/21/21 09/08/22 History tramadol 50 mg tablet 50 mg PO Q8H PRN pain #10 tabs 09/04/22 09/08/22 Rx cephalexin 500 mg capsule 500 mg PO Q6H 5 days #20 caps 09/05/22 09/08/22 Rx azithromycin 250 mg tablet See Rx Instructions PO .COMPLEX #6 09/07/22 09/08/22 Rx (Zithromax Z-Chuy) tabs Allergies Allergy/AdvReac Type Severity Reaction Status Date / Time tetanus and diphtheria Allergy Severe Anaphylaxis Verified 09/08/22 13:43 toxoids atorvastatin Allergy Intermediate hand Verified 09/08/22 13:43 swelling Flecainide Allergy Mild Insomnia Verified 09/08/22 13:43 hydrocodone Allergy Mild Nausea Verified 09/08/22 13:43 [From Lorcet (hydrocodone)] Formoterol [From Symbicort] Allergy Unknown Unknown Verified 09/08/22 13:43 lisinopril Allergy Unknown Palpitation Verified 09/08/22 13:43 s [place]-HDK-WoH Reductase Allergy Unknown Itching Verified 09/08/22 13:43 Inhibitor budesonide [From Symbicort] AdvReac Unknown ineffective/no Verified 09/08/22 13:43 allergy Pain Meds Allergy Mild Nausea Uncoded 09/08/22 13:43 EXAM Constitutional Vitals: Temp Pulse Resp BP Pulse Ox O2 Del Method 98.4 F 82 20 105/56 93 Room Air 09/08/22 14:18 09/08/22 20:01 09/08/22 20:15 09/08/22 20:15 09/08/22 20:01 09/08/22 14:18 DATA Data Completed and Pending Labs: Labs from last 24 hours 09/08/22 09/08/22 09/08/22 15:43 15:40 15:40 WBC RBC Hgb Hct MCV MCH MCHC RDW Plt Count MPV Immature Gran % (Auto) Neut % (Auto) Lymph % (Auto) [place] % (Auto) Eos % (Auto) Baso % (Auto) Lymph # (Auto) [place] # (Auto) Eos # (Auto) Baso # (Auto) Immature Gran # Absolute Neutrophils POC VBG pH POC VBG pCO2 at Temp POC VBG pO2 POC VBG HCO3 POC VBG Total CO2 POC Venous O2 Sat POC VBG Base Excess VBG Lactic Acid Sodium 134 Potassium 5.0 Chloride 98 Carbon Dioxide 29 Anion Gap 7.0 L BUN 15 Creatinine 0.9 POC Creatinine 1.1 GFR Calculation 82 Glucose 98 Calcium 9.1 Total Bilirubin 0.3 AST 28 ALT 37 Alkaline Phosphatase 165 H Total Protein 7.1 Albumin 2.8 L Globulin 4.3 H Albumin/Globulin Ratio 0.7 L Procalcitonin 0.22 H Urine Color Urine Appearance Urine pH Ur Specific [place] Urine Protein Urine Glucose (UA) Urine Ketones Urine Occult Blood Urine Nitrate Urine Bilirubin Urine Urobilinogen Ur Leukocyte Esterase Urine RBC Urine WBC Ur Squamous Epith Cells Urine Bacteria Ur Culture Indicated? 09/08/22 09/08/22 09/08/22 15:40 15:35 14:57 WBC 13.0 H RBC 2.20 L Hgb 7.0 L* Hct 22.2 L MCV 100.9 H MCH 31.8 MCHC 31.5 RDW 13.4 Plt Count 610 H MPV 8.6 L Immature Gran % (Auto) 0.8 H Neut % (Auto) 82.7 H Lymph % (Auto) 8.0 L [place] % (Auto) 7.8 Eos % (Auto) 0.3 Baso % (Auto) 0.4 Lymph # (Auto) 1.04 L [place] # (Auto) 1.02 H Eos # (Auto) 0.04 Baso # (Auto) 0.05 Immature Gran # 0.11 H Absolute Neutrophils 10.75 H POC VBG pH 7.44 H POC VBG pCO2 at Temp 47.3 POC VBG pO2 14 L POC VBG HCO3 32.2 H POC VBG Total CO2 34.0 H POC Venous O2 Sat 18.0 L POC VBG Base Excess 8.0 H* VBG Lactic Acid 0.9 Sodium Potassium Chloride Carbon Dioxide Anion Gap BUN Creatinine POC Creatinine GFR Calculation Glucose Calcium Total Bilirubin AST ALT Alkaline Phosphatase Total Protein Albumin Globulin Albumin/Globulin Ratio Procalcitonin Urine Color Yellow Urine Appearance Clear Urine pH 6.0 Ur Specific [place] 1.013 Urine Protein Negative Urine Glucose (UA) Negative Urine Ketones Negative Urine Occult Blood Negative Urine Nitrate Negative Urine Bilirubin Negative Urine Urobilinogen Negative Ur Leukocyte Esterase Negative Urine RBC < 1 Urine WBC 0 Ur Squamous Epith Cells 0 Urine Bacteria None Ur Culture Indicated? No A/P Assessment and plan (1) GI (gastrointestinal bleed): Plan: Discussed case with Dr. Gresham. Will arrange for colonoscopy. He will be on clear liquids and initiate Colyte prep early tomorrow morning with plan for colonoscopy tomorrow late morning or early afternoon. Will plan on EGD the following day to evaluate anorexia, abnormal Ct and anemia. Differential diagnosis includes diverticular bleed, angiodysplasia, colonic polyp, peptic ulcer disease among others. Status: Acute Sepsis Sepsis Identified: No Time Spent With Patient Time: Total time spent is greater than 50% in coordination of care (as documented) at patient's floor/unit and/or counseling patient: Initial: Total time with patient: Less than 40 minutes Subsequent: Total time with patient: 25 - 34 minutes Critical Care Time: No Total Critical Care Time: 0
[2022-09-08] MEDS: 0.9 % SODIUM CHLORIDE 1,000 ML IV SCH (21:45)
[2022-09-08] MEDS: 0.9 % SODIUM CHLORIDE 10 ML SYRINGE IV SCH (22:01)
[2022-09-08] MEDS: predniSONE 20 MG TABLET PO SCH (22:23)
[2022-09-09] MEDS ORDERED: PEG 3350/NA SULF,BICARB,CL/KCL 4,000 ML ORAL.SOL PO ONE ×3 (04:50→11:02)
[2022-09-09] MEDS ORDERED: PEG 3350/NA SULF,BICARB,CL/KCL 4,000 ML ORAL.SOL ONE (05:01)
[2022-09-09] MEDS: 0.9 % SODIUM CHLORIDE 10 ML SYRINGE IV SCH ×3 (05:09→21:10)
[2022-09-09 06:33] LABS: Basophils # (Auto) 0.01 K/mcL (0.00-0.30); Basophils % (Auto) 0.1 % (0.0-2.0); Eosinophils # (Auto) 0 K/mcL (0.00-0.70); Eosinophils % (Auto) 0 % (0.0-7.0); Hematocrit 23.9 % (40.1-51.0); Hemoglobin 7.6 g/dL (13.7-17.5); Lymphocytes # (Auto) 0.51 K/mcL (1.50-4.80); Lymphocytes % (Auto) 4.9 % (15.5-49.0); Mean Cell Volume 99.6 fL (80.0-100.0); Mean Corpuscular HGB Conc 31.8 g/dL (31.0-36.0); Mean Platelet Volume 8.6 fL (8.8-12.5); Monocytes # (Auto) 0.09 K/mcL (0.10-0.90); Monocytes % (Auto) 0.9 % (1.0-12.0); Neutrophils % (Auto) 93.4 % (38.0-78.0); Platelet Count 600 K/mcL (140-440); Red Cell Distribution Width 13.8 % (11.5-14.5); WBC 10.4 K/mcL (4.5-11.0)
[2022-09-09 06:59] LABS: ALT/SGPT 31 U/L (<40); AST/SGOT 24 U/L (<40); Albumin 2.7 gm/dL (3.2-5.2); Albumin/Globulin Ratio 0.7 (1.0-2.3); Alkaline Phosphatase 145 U/L (39-117); Bilirubin,Total 0.5 mg/dL (0.1-1.0); Blood Urea Nitrogen 11 mg/dL (8-23); Calcium 8.9 mg/dL (8.6-10.4); Carbon Dioxide 26 mmol/L (22-30); Chloride 95 mmol/L (96-108); Glomerular Filtration Rate 82; Glucose 133 mg/dL (70-105)
[2022-09-09] MEDS: predniSONE 20 MG TABLET PO SCH (08:17)
[2022-09-09] MEDS: PANTOPRAZOLE 40 MG VIAL IV SCH ×2 (08:17→18:16)
[2022-09-09] MEDS: AZITHROMYCIN 500 MG in DEXTROSE 5% IN WATER 250 ML IV SCH (08:17)
[2022-09-09] MEDS: cefTRIAXone 1 GM VIAL IV SCH (08:17)
[2022-09-09] MEDS ORDERED: KETAMINE 50 MG/ML ML IV PRN (08:32)
[2022-09-09] MEDS ORDERED: ALBUTEROL SULFATE 60 PUFF INHALER INH PRN (08:40)
[2022-09-09] MEDS ORDERED: PROPOFOL 200 MG/20 ML VIAL IV SCH (08:45)
[2022-09-09] MEDS ORDERED: MIDAZOLAM 2 MG/2 ML VIAL IV SCH (08:45)
[2022-09-09] MEDS ORDERED: traMADol 50 MG TABLET PO PRN (08:46)
[2022-09-09] MEDS: MULTIVIT,THER IRON,CA,FA & MIN 1 TABLET PO SCH (08:54)
[2022-09-09] MEDS: PROPAFENONE 150 MG TABLET PO SCH ×2 (08:54→21:10)
[2022-09-09] MEDS: CYANOCOBALAMIN (VITAMIN B-12) 500 MCG TABLET PO SCH (08:54)
[2022-09-09] MEDS ORDERED: FLEETS ADULT ENEMA PR ONE (10:07)
--- NOTE | 2022-09-09 10:24 | Internal Med Progress Note ---
SUBJECTIVE Subjective Patient information: Note initiated : 09/09/22 at 10:21 am Service Date, if different from initiated Date: [] Patient: Sandro Viveros 77 y/o M admitted on 09/08/22 for Possible sepsis-PNA,Rectal Bleeding. Chief Complaint: [] Interval history: Mr. Viveros is a 77 year old M history of lung cancer status post chemoradiation, atrial fibrillation on Eliquis, COPD, dyslipidemia, presenting with 3-week history of shortness of breath, productive cough, fever, chills. He was being diagnosed in outpatient clinic with pneumonia and was being prescribed Keflex for 10 days for which he finished the therapy but he still coming of worsening symptoms including shortness of breath, productive cough with clear sputum, subjective fever and chills. He was also having right shoulder pain. [facility] prescribed additional antibiotics with azithromycin which he just started today. In additions, patient also has experienced black stool bloody stool ever since he started taking Keflex. He is also on Eliquis and he last took it today for atrial fibrillation's. He saw GI specialist Dr. Fletcher who was trying to schedule outpatient elective colonoscopy but it has not happened yet. Vital signs at ED presentation with normal meds. Labs significant for leukocytosis with WBC 13.0. Hemoglobin and hematocrit 7.0 and 22.2, respectively. Serum lactic acid 0.9, procalcitonin level 0.22. Respiratory panel with COVID, influenza a and B, and RSV pending. Chest x-ray showing posterior right lower lobe infiltrate suggesting of new pneumonia. Admission request is called for pneumonia as well as symptomatic rectal bleeding, likely lower GI bleeding. 09/09: Status post 1 unit PRBC transfusions, hemoglobin improved from 7.0-7.6 this morning. No additional episode of black stool or bloody stool. Patient is tolerating room air. Blood culture no growth today. Respiratory panel negative for CoVID/influenza/RSV. WBC down trended from 13.0-10.4. Patient is complaining of shortness of breath, improved relative to yesterday. He is to have cough. He denies any fever chills or diaphoresis. Pending colonoscopy by GI specialist today. Keep the patient n.p.o. with IV fluid. Continue empiric antibiotics with Rocephin and azithromycin while monitoring for blood culture result for pneumonia. Continue prednisone and DuoNeb nebulizer as needed for wheezing for COPD exacerbations. Supplemental oxygen therapy as needed. Overall condition guarded. Constitutional Vitals: Vital Signs Temp Pulse Resp BP Pulse Ox O2 Del Method O2 Flow Rate 36.9 C 64 18 137/61 99 Room Air 1.5 09/09/22 06:24 09/09/22 06:24 09/09/22 06:24 09/09/22 06:24 09/09/22 07:23 09/09/22 07:23 09/09/22 04:00 Period Temp Pulse Resp BP Sys/Renteria Pulse Ox O2 Del Method O2 Flow Rate Last 24 Hr 36.7 C-37.1 C 64-91 13-28 90-137/48-64 90-100 Nasal Cannula- Room Air 1.5-2 Intake and Output 09/08/22 09/09/22 09/09/22 19:59 03:59 11:59 Intake Total 250 380 610 Output Total 275 5500 Balance 250 105 -4890 Weight 69.4 kg 74.503 kg Intake & Output: Intake & Output 09/08/22 09/09/22 09/09/22 19:59 03:59 11:59 Intake Total 250 380 610 Output Total 275 5500 Balance 250 105 -4890 Weight 69.4 kg 74.503 kg Intake: IV 250 30 250 Sodium Chloride 0.9% 250 ml @ 30 0 20 mls/hr IV .[id number] [facility] Rx#: [id number] Zithromax 500 mg In Dextrose 5% 250 250 in Water 250 ml @ 250 mls/hr IV Q24H [facility] Rx#:[id number] Oral 360 Blood Product 350 Output: Void Amount 275 1000 Urine/Stool Mix 4500 Other: Urine Appearance Clear Clear Urine Color Yellow Yellow Stool Color Brown Stool Consistency Soft Liquid Watery Lauren Head Head exam: Present atraumatic and normal inspection Eye Eye exam: Present normal appearance ENT ENT exam: Present mucous membranes moist, normal exam and normal external ear exam Neck Neck exam: Present normal inspection Respiratory Respiratory exam: Present decreased breath sounds Cardiovascular Cardiovascular exam: Present irregular rhythm GI/Abdominal GI/Abdominal exam: Present normal bowel sounds Back Exam Back exam: Present normal inspection Neurological Exam Neurological exam: Present alert and oriented X3 Skin Skin exam: Present intact and warm OBJ DATA Labs 09/09/22 05:20 09/09/22 05:17 Labs: Abnormal Lab Results 09/09/22 09/09/22 09/08/22 05:20 05:17 15:40 WBC RBC 2.40 L Hgb 7.6 L Hct 23.9 L MCV Plt Count 600 H MPV 8.6 L Immature Gran % (Auto) 0.7 H Neut % (Auto) 93.4 H Lymph % (Auto) 4.9 L [place] % (Auto) 0.9 L Lymph # (Auto) 0.51 L [place] # (Auto) 0.09 L Immature Gran # 0.07 H Absolute Neutrophils 9.69 H POC VBG pH POC VBG pO2 POC VBG HCO3 POC VBG Total CO2 POC Venous O2 Sat POC VBG Base Excess Sodium 130 L Chloride 95 L Anion Gap Glucose 133 H Alkaline Phosphatase 145 H Albumin 2.7 L Globulin 4.0 H Albumin/Globulin Ratio 0.7 L Procalcitonin 0.22 H 09/08/22 09/08/22 09/08/22 15:40 15:40 15:35 WBC 13.0 H RBC 2.20 L Hgb 7.0 L* Hct 22.2 L MCV 100.9 H Plt Count 610 H MPV 8.6 L Immature Gran % (Auto) 0.8 H Neut % (Auto) 82.7 H Lymph % (Auto) 8.0 L [place] % (Auto) Lymph # (Auto) 1.04 L [place] # (Auto) 1.02 H Immature Gran # 0.11 H Absolute Neutrophils 10.75 H POC VBG pH 7.44 H POC VBG pO2 14 L POC VBG HCO3 32.2 H POC VBG Total CO2 34.0 H POC Venous O2 Sat 18.0 L POC VBG Base Excess 8.0 H* Sodium Chloride Anion Gap 7.0 L Glucose Alkaline Phosphatase 165 H Albumin 2.8 L Globulin 4.3 H Albumin/Globulin Ratio 0.7 L Procalcitonin Meds: Medications Acetaminophen (Acetaminophen 325 Mg Tablet) 650 mg PO Q6HP PRN; Protocol PRN Reason: Per Pain Protocol/Fever > 101 Albuterol Sulfate (Albuterol Sulfate 60 Puff Inhaler) 2 puff INH Q6HP PRN PRN Reason: shortness of breath or wheezing Albuterol/Ipratropium (Ipratropium/Albuterol 3 Ml Ampul.Neb) 3 ml NEB Q4HRT PRN PRN Reason: Wheezing Ceftriaxone Sodium (Ceftriaxone 1 Gm Vial) 1 gm IV Q24H [facility] Last Admin: 09/09/22 08:17 Dose: 1 gm Cyanocobalamin (Cyanocobalamin (Vitamin B-12) 500 Mcg Tablet) 1,000 mcg PO QDAY [facility] Last Admin: 09/09/22 08:54 Dose: 1,000 mcg Diagnostic Test (Pha) (Accu-Chek 1 Each Strip) 1 each FS UD PRN PRN Reason: DM Stop: 09/09/22 16:32 Sodium Chloride (Sodium Chloride 0.9%) 1,000 mls @ 75 mls/hr IV .[id number] [facility] Last Admin: 09/08/22 21:45 Dose: 75 mls/hr Azithromycin 500 mg/ Dextrose 250 mls @ 250 mls/hr IV Q24H [facility]; Protocol Stop: 09/10/22 10:59 Last Infusion: 09/09/22 09:58 Dose: Infused Iron Carb/Multivit/Call Worker Person/Folic Acid (Multivit,Ther Iron,Ca,Fa & Min 1 Tablet) 1 tab PO QDAY [facility] Last Admin: 09/09/22 08:54 Dose: 1 tab Ketamine HCl (Ketamine 50 Mg/Ml Ml) 50 mg IV ONCE PRN PRN Reason: Sedation Stop: 09/09/22 16:32 Metoprolol Tartrate (Metoprolol Tartrate 5 Mg/5 Ml Vial) 5 mg IV Q1H PRN PRN Reason: Tachyarrhythmias Midazolam HCl (Midazolam 2 Mg/2 Ml Vial) 0 mg IV ONCE [facility] Stop: 09/09/22 16:32 Ondansetron HCl (Ondansetron 4 Mg/2 Ml Vial) 4 mg IV Q6HP PRN PRN Reason: Nausea And Vomiting Pantoprazole Sodium (Pantoprazole 40 Mg Vial) 40 mg IV BIDAC [facility] Last Admin: 09/09/22 08:17 Dose: 40 mg Prednisone (Prednisone 20 Mg Tablet) 40 mg PO QAC [facility] Last Admin: 09/09/22 08:17 Dose: 40 mg Propafenone HCl (Propafenone 150 Mg Tablet) 150 mg PO BID [facility] Last Admin: 09/09/22 08:54 Dose: 150 mg Propofol (Propofol 200 Mg/20 Ml Vial) 0 mg IV UD [facility] Stop: 09/09/22 16:32 Simvastatin (Simvastatin 40 Mg Tablet) 80 mg PO HS [facility] Sodium Chloride (0.9 % Sodium Chloride 10 Ml Syringe) 10 ml IV Q8 [facility] Last Admin: 09/09/22 05:09 Dose: Not Given Tramadol HCl (Tramadol 50 Mg Tablet) 50 mg PO Q8HP PRN PRN Reason: pain Trazodone HCl (Trazodone Hcl 50 Mg Tablet) 25 mg PO HSP PRN PRN Reason: Insomnia A/P Assessment and plan (1) Pneumonia: Status: Acute (2) Anemia: Status: Acute (3) GI (gastrointestinal bleed): Status: Acute (4) History of lung cancer: Status: Chronic Comment: Right (5) Dyslipidemia: Status: Chronic (6) Atrial fibrillation: Status: Chronic Qualifiers: Atrial fibrillation type: unspecified chronic Qualified Code(s): I48.20 - Chronic atrial fibrillation, unspecified (7) Rash: Status: Chronic (8) COPD exacerbation: Status: Acute Narrative A/P Narrative: Assessment and Plans: 1. Right lower lobe pneumonia, failed outpatient antibiotics therapy (Keflex): Observation med surg telemetry Serial lactic acid Procalcitonin level Blood culture, no growth to date cbc w/ auto diff in the morning to trend WBC Respiratory panel negative for CoVID/influenza/RSV Rocephin Zithromax NS@75cc/hr 2. Rectal bleeding/lower GI bleeding, likely from hemorrhoid: GI Dr. Gresham for potential colonoscopy s/p 1 unit pRBC transfusion, hemoglobin 7.0-->7.6 cbc q12hr to trend H/H Protonix IV Hold Eliquis 3. h/o congestive heart failure: Hold Aldactone NS@75cc/hr 4. Atrial fibrillation: Propafenone Hold Eliquis Lopressor 5mg IV q1hr PRN SBP>120bpm, hold if SBP<90 and/or DBP<50mmHg 5. h/o lung cancer s/p chemoradiation: Continue to monitor 6. h/o COPD, cannot rule out exacerbation: Azithromycin DuoNEB NEB Prednisone Supplemental oxygen therapy titrate to achieve spo2>=88% 7. Mixed dyslipidemia: Continue statin therapy GI ppx: Protonix DVT ppx: SCDs Code status: no chest compression Prognosis: guarded Disposition: observation med surg tele Time Spent With Patient Time: Total time spent is greater than 50% in coordination of care (as documented) at patient's floor/unit and/or counseling patient: Subsequent: Total time with patient: 35 - 49 minutes
[2022-09-09] MEDS: 0.9 % SODIUM CHLORIDE 1,000 ML IV SCH (11:10)
[2022-09-09] MEDS: SIMVASTATIN 40 MG TABLET PO SCH (21:10)
[2022-09-09 22:00] LABS: Basophils # (Auto) 0.01 K/mcL (0.00-0.30); Basophils % (Auto) 0.1 % (0.0-2.0); Eosinophils # (Auto) 0 K/mcL (0.00-0.70); Eosinophils % (Auto) 0 % (0.0-7.0); Hematocrit 23.6 % (40.1-51.0); Hemoglobin 7.7 g/dL (13.7-17.5); Lymphocytes # (Auto) 0.72 K/mcL (1.50-4.80); Lymphocytes % (Auto) 5.5 % (15.5-49.0); Mean Cell Volume 97.9 fL (80.0-100.0); Mean Corpuscular HGB Conc 32.6 g/dL (31.0-36.0); Mean Platelet Volume 8.7 fL (8.8-12.5); Monocytes # (Auto) 0.98 K/mcL (0.10-0.90); Monocytes % (Auto) 7.5 % (1.0-12.0); Platelet Count 644 K/mcL (140-440); RBC 2.41 M/mcL (4.63-6.08); Red Cell Distribution Width 13.6 % (11.5-14.5); WBC 13.2 K/mcL (4.5-11.0)
[2022-09-10] MEDS: 0.9 % SODIUM CHLORIDE 1,000 ML IV SCH ×2 (01:16→15:32)
[2022-09-10] MEDS: 0.9 % SODIUM CHLORIDE 10 ML SYRINGE IV SCH ×3 (05:03→21:16)
[2022-09-10 06:46] LABS: Basophils # (Auto) 0.02 K/mcL (0.00-0.30); Basophils % (Auto) 0.1 % (0.0-2.0); Eosinophils # (Auto) 0.01 K/mcL (0.00-0.70); Eosinophils % (Auto) 0.1 % (0.0-7.0); Hematocrit 22.4 % (40.1-51.0); Hemoglobin 7.1 g/dL (13.7-17.5); Lymphocytes # (Auto) 1.48 K/mcL (1.50-4.80); Lymphocytes % (Auto) 11.1 % (15.5-49.0); Mean Cell Volume 99.6 fL (80.0-100.0); Mean Corpuscular HGB Conc 31.7 g/dL (31.0-36.0); Mean Platelet Volume 8.6 fL (8.8-12.5); Monocytes # (Auto) 1.11 K/mcL (0.10-0.90); Monocytes % (Auto) 8.3 % (1.0-12.0); Neutrophils % (Auto) 79.7 % (38.0-78.0); Platelet Count 564 K/mcL (140-440); RBC 2.25 M/mcL (4.63-6.08); Red Cell Distribution Width 13.8 % (11.5-14.5); WBC 13.4 K/mcL (4.5-11.0)
[2022-09-10] MEDS ORDERED: KETAMINE 50 MG/ML ML IV PRN (06:54)
[2022-09-10] MEDS ORDERED: MIDAZOLAM 2 MG/2 ML VIAL IV SCH (07:00)
[2022-09-10] MEDS ORDERED: PROPOFOL 200 MG/20 ML VIAL IV SCH (07:00)
[2022-09-10 07:01] LABS: ALT/SGPT 29 U/L (<40); AST/SGOT 25 U/L (<40); Albumin 2.5 gm/dL (3.2-5.2); Albumin/Globulin Ratio 0.8 (1.0-2.3); Alkaline Phosphatase 118 U/L (39-117); Bilirubin,Total 0.2 mg/dL (0.1-1.0); Blood Urea Nitrogen 16 mg/dL (8-23); Calcium 8.3 mg/dL (8.6-10.4); Carbon Dioxide 29 mmol/L (22-30); Chloride 100 mmol/L (96-108); Globulin 3.3 gm/dL (2.2-3.7); Glomerular Filtration Rate 82; Glucose 90 mg/dL (70-105)
[2022-09-10] MEDS: PANTOPRAZOLE 40 MG VIAL IV SCH (07:24)
--- NOTE | 2022-09-10 08:34 | Colonoscopy Procedure Note ---
Colonoscopy Procedure Notes Procedure Information Patient information: Note initiated : 09/10/22 at 8:32 am Patient: Sandro Viveros 77 y/o M admitted on 09/08/22 for Possible sepsis-PNA,Rectal Bleeding. Date of Procedure: 09/09/22 Pre-op diagnosis general: Bright red blood per rectum. Anemia. Post-op diagnosis: Colonic polyp. Hemorrhoid. Procedure: Colonoscopy with Polypectomy Snare Procedure narrative: The procedure, alternatives and risks were discussed with the patient and the patient's questions were answered. With endoscopist-administered intravenous sedation, the Olympus colonoscope was introduced into the rectum and advanced to the cecum. Ileocecal valve was identified, intubated, and several centimeters of the terminal ileum were examined. Colonic polyp was seen in the ascending colon; polyp was removed with a snare. It was retrieved for histological examination. No diverticulosis was seen. Prominent hemorrhoids were noted at the anal verge. Anesthesia: conscious sedation Findings: Colonic polyp. Hemorrhoid. Complications: none Surgeon: Juan Miguel Gresham Estimated blood loss: 0 Specimens Removed/Pathology: other Condition: stable Disposition: same day Assessment: Colonic polyp. Hemorrhoid.
[2022-09-10] MEDS: predniSONE 20 MG TABLET PO SCH (09:07)
[2022-09-10] MEDS: AZITHROMYCIN 500 MG in DEXTROSE 5% IN WATER 250 ML IV SCH (09:07)
[2022-09-10] MEDS: PROPAFENONE 150 MG TABLET PO SCH ×2 (09:07→21:16)
[2022-09-10] MEDS: MULTIVIT,THER IRON,CA,FA & MIN 1 TABLET PO SCH (09:12)
[2022-09-10] MEDS: CYANOCOBALAMIN (VITAMIN B-12) 500 MCG TABLET PO SCH (09:12)
[2022-09-10] MEDS: cefTRIAXone 1 GM VIAL IV SCH (10:18)
--- NOTE | 2022-09-10 14:40 | Internal Med Progress Note ---
SUBJECTIVE Subjective Patient information: Note initiated : 09/10/22 at 2:38 pm Service Date, if different from initiated Date: [] Patient: Sandro Viveros 77 y/o M admitted on 09/10/22 for Possible sepsis-PNA,Rectal Bleeding. Chief Complaint: [] Interval history: Mr. Viveros is a 77 year old M history of lung cancer status post chemoradiation, atrial fibrillation on Eliquis, COPD, dyslipidemia, presenting with 3-week history of shortness of breath, productive cough, fever, chills. He was being diagnosed in outpatient clinic with pneumonia and was being prescribed Keflex for 10 days for which he finished the therapy but he still coming of worsening symptoms including shortness of breath, productive cough with clear sputum, subjective fever and chills. He was also having right shoulder pain. [facility] and was being prescribed additional antibiotics with azithromycin which he just started today. In additions, patient also has experienced black stool bloody stool ever since he started taking Keflex. He is also on Eliquis and he last took it today for atrial fibrillation's. He saw GI specialist Dr. Fletcher who was trying to schedule outpatient elective colonoscopy but it has not happened yet. Vital signs at ED presentation with normal meds. Labs significant for leukocytosis with WBC 13.0. Hemoglobin and hematocrit 7.0 and 22.2, respectively. Serum lactic acid 0.9, procalcitonin level 0.22. Respiratory panel with COVID, influenza a and B, and RSV pending. Chest x-ray showing posterior right lower lobe infiltrate suggesting of new pneumonia. Admission request is called for pneumonia as well as symptomatic rectal bleeding, likely lower GI bleeding. 09/09: Status post 1 unit PRBC transfusions, hemoglobin improved from 7.0-7.6 this morning. No additional episode of black stool or bloody stool. Patient is tolerating room air. Blood culture no growth today. Respiratory panel negative for CoVID/influenza/RSV. WBC down trended from 13.0-10.4. Patient is complaining of shortness of breath, improved relative to yesterday. He is to have cough. He denies any fever chills or diaphoresis. Pending colonoscopy by GI specialist today. Keep the patient n.p.o. with IV fluid. Continue empiric antibiotics with Rocephin and azithromycin while monitoring for blood culture result for pneumonia. Continue prednisone and DuoNeb nebulizer as needed for wheezing for COPD exacerbations. Supplemental oxygen therapy as needed. Overall condition guarded. 09/10: Status post colonoscopy by Dr. Gresham yesterday who found hemorrhoid as well as colonic polyps. He then performed EGD earlier today which did not found any sites of active GI bleeding. Hemoglobin this morning 7.1. Patient is currently on 2 L/min nasal cannula oxygen. He is feeling weak and tired after the procedures. Transfuse 1 unit PRBC today. Switch Protonix from IV twice daily to p.o. daily. Continue to hold Eliquis for now. Saline lock the patient. Okay to feed the patient from medical standpoint whenever GI surgeon is okay and ready for that. Continue empiric antibiotics Rocephin and azithromycin for pneumonia. Overall condition stable. Tentative date of discharge Sunday, September 11, 2022. Constitutional Vitals: Vital Signs Temp Pulse Resp BP Pulse Ox O2 Del Method O2 Flow Rate 36.4 C 67 20 102/48 95 Room Air 2 09/10/22 11:33 09/10/22 13:17 09/10/22 13:17 09/10/22 13:17 09/10/22 13:17 09/10/22 11:33 09/10/22 08:00 Period Temp Pulse Resp BP Sys/Renteria Pulse Ox O2 Del Method O2 Flow Rate Last 24 Hr 36.1 C-37.3 C 60-88 16-24 102-142/48-94 91-100 Nasal Cannula- Room Air 0-10 Intake and Output 09/10/22 09/10/22 09/10/22 03:59 11:59 19:59 Intake Total 1250 300 868 Output Total 200 325 200 Balance 1050 -25 668 Weight 75.024 kg Intake & Output: Intake & Output 09/10/22 09/10/22 09/10/22 03:59 11:59 19:59 Intake Total 1250 300 868 Output Total 200 325 200 Balance 1050 -25 668 Weight 75.024 kg Intake: IV 1000 250 868 Sodium Chloride 0.9% 1,000 ml @ 1000 868 75 mls/hr IV .[id number] [facility] Rx#: [id number] Zithromax 500 mg In Dextrose 5% 250 in Water 250 ml @ 250 mls/hr IV Q24H [facility] Rx#:[id number] Oral 250 50 Output: Void Amount 200 325 200 Other: Meal Dinner Percent of Meal Consumed 100% Feeding Ability Independent Urine Appearance Clear Clear Clear Urine Color Yellow Yellow Yellow Urine Odor Normal Normal Stool Size Smear Stool Color Brown Stool Consistency Soft Head Head exam: Present atraumatic and normal inspection Eye Eye exam: Present normal appearance ENT ENT exam: Present mucous membranes moist, normal exam and normal external ear exam Additional comments: Nasal cannula in place Neck Neck exam: Present normal inspection Respiratory Respiratory exam: Present normal respiratory exam Cardiovascular Cardiovascular exam: Present irregular rhythm GI/Abdominal GI/Abdominal exam: Present normal bowel sounds Back Exam Back exam: Present normal inspection Neurological Exam Neurological exam: Present alert and oriented X3 Skin Skin exam: Present intact and warm OBJ DATA Labs 09/10/22 05:50 09/10/22 05:50 Labs: Abnormal Lab Results 09/10/22 09/10/22 09/09/22 05:50 05:50 20:55 WBC 13.4 H 13.2 H RBC 2.25 L 2.41 L Hgb 7.1 L 7.7 L Hct 22.4 L 23.6 L MCV Plt Count 564 H 644 H MPV 8.6 L 8.7 L Immature Gran % (Auto) 0.7 H 0.9 H Neut % (Auto) 79.7 H 86.0 H Lymph % (Auto) 11.1 L 5.5 L [place] % (Auto) Lymph # (Auto) 1.48 L 0.72 L [place] # (Auto) 1.11 H 0.98 H Immature Gran # 0.09 H 0.12 H Absolute Neutrophils 10.66 H 11.32 H POC VBG pH POC VBG pO2 POC VBG HCO3 POC VBG Total CO2 POC Venous O2 Sat POC VBG Base Excess Sodium Chloride Anion Gap 7.0 L Glucose Calcium 8.3 L Alkaline Phosphatase 118 H Total Protein 5.8 L Albumin 2.5 L Globulin Albumin/Globulin Ratio 0.8 L Procalcitonin 09/09/22 09/09/22 09/08/22 05:20 05:17 15:40 WBC RBC 2.40 L Hgb 7.6 L Hct 23.9 L MCV Plt Count 600 H MPV 8.6 L Immature Gran % (Auto) 0.7 H Neut % (Auto) 93.4 H Lymph % (Auto) 4.9 L [place] % (Auto) 0.9 L Lymph # (Auto) 0.51 L [place] # (Auto) 0.09 L Immature Gran # 0.07 H Absolute Neutrophils 9.69 H POC VBG pH POC VBG pO2 POC VBG HCO3 POC VBG Total CO2 POC Venous O2 Sat POC VBG Base Excess Sodium 130 L Chloride 95 L Anion Gap Glucose 133 H Calcium Alkaline Phosphatase 145 H Total Protein Albumin 2.7 L Globulin 4.0 H Albumin/Globulin Ratio 0.7 L Procalcitonin 0.22 H 09/08/22 09/08/22 09/08/22 15:40 15:40 15:35 WBC 13.0 H RBC 2.20 L Hgb 7.0 L* Hct 22.2 L MCV 100.9 H Plt Count 610 H MPV 8.6 L Immature Gran % (Auto) 0.8 H Neut % (Auto) 82.7 H Lymph % (Auto) 8.0 L [place] % (Auto) Lymph # (Auto) 1.04 L [place] # (Auto) 1.02 H Immature Gran # 0.11 H Absolute Neutrophils 10.75 H POC VBG pH 7.44 H POC VBG pO2 14 L POC VBG HCO3 32.2 H POC VBG Total CO2 34.0 H POC Venous O2 Sat 18.0 L POC VBG Base Excess 8.0 H* Sodium Chloride Anion Gap 7.0 L Glucose Calcium Alkaline Phosphatase 165 H Total Protein Albumin 2.8 L Globulin 4.3 H Albumin/Globulin Ratio 0.7 L Procalcitonin Meds: Medications Acetaminophen (Acetaminophen 325 Mg Tablet) 650 mg PO Q6HP PRN; Protocol PRN Reason: Per Pain Protocol/Fever > 101 Albuterol Sulfate (Albuterol Sulfate 60 Puff Inhaler) 2 puff INH Q6HP PRN PRN Reason: shortness of breath or wheezing Albuterol/Ipratropium (Ipratropium/Albuterol 3 Ml Ampul.Neb) 3 ml NEB Q4HRT PRN PRN Reason: Wheezing Ceftriaxone Sodium (Ceftriaxone 1 Gm Vial) 1 gm IV Q24H [facility] Last Admin: 09/10/22 10:18 Dose: 1 gm Cyanocobalamin (Cyanocobalamin (Vitamin B-12) 500 Mcg Tablet) 1,000 mcg PO QDAY [facility] Last Admin: 09/10/22 09:12 Dose: Not Given Diagnostic Test (Pha) (Accu-Chek 1 Each Strip) 1 each FS UD PRN PRN Reason: DM Stop: 09/10/22 14:54 Sodium Chloride (Sodium Chloride 0.9%) 1,000 mls @ 75 mls/hr IV .[id number] [facility] Last Infusion: 09/10/22 13:40 Dose: 75 mls/hr Sodium Chloride (Sodium Chloride 0.9%) 250 mls @ 20 mls/hr IV .[id number] [facility] Stop: 09/11/22 03:14 Iron Carb/Multivit/Bus [place]/Folic Acid (Multivit,Ther Iron,Ca,Fa & Min 1 Tablet) 1 tab PO QDAY [facility] Last Admin: 09/10/22 09:12 Dose: Not Given Ketamine HCl (Ketamine 50 Mg/Ml Ml) 50 mg IV ONCE PRN PRN Reason: Sedation Stop: 09/10/22 14:54 Metoprolol Tartrate (Metoprolol Tartrate 5 Mg/5 Ml Vial) 5 mg IV Q1H PRN PRN Reason: Tachyarrhythmias Midazolam HCl (Midazolam 2 Mg/2 Ml Vial) 0 mg IV ONCE [facility] Stop: 09/10/22 14:54 Last Admin: 09/10/22 13:08 Dose: 2 mg Ondansetron HCl (Ondansetron 4 Mg/2 Ml Vial) 4 mg IV Q6HP PRN PRN Reason: Nausea And Vomiting Pantoprazole Sodium (Pantoprazole 40 Mg Tablet) 40 mg PO [facility] Prednisone (Pred[facility]one 20 Mg Tablet) [facility] Last Admin: 09/10/22 09:07 Dose: 40 mg Propafenone HCl (Propafenone 150 Mg Tablet) 150 mg PO BID [facility] Last Admin: 09/10/22 09:07 Dose: 150 mg Propofol (Propofol 200 Mg/20 Ml Vial) 0 mg IV UD [facility] Stop: 09/10/22 14:54 Last Admin: 09/10/22 13:08 Dose: 80 mg Simvastatin (Simvastatin 40 Mg Tablet) 80 mg PO HS [facility] Last Admin: 09/09/22 21:10 Dose: 80 mg Sodium Chloride (0.9 % Sodium Chloride 10 Ml Syringe) 10 ml IV Q8 [facility] Last Admin: 09/10/22 14:31 Dose: Not Given Spironolactone (Spironolactone 25 Mg Tablet) 25 mg PO QAM [facility] Tramadol HCl (Tramadol 50 Mg Tablet) 50 mg PO Q8HP PRN PRN Reason: pain Trazodone HCl (Trazodone Hcl 50 Mg Tablet) 25 mg PO HSP PRN PRN Reason: Insomnia A/P Assessment and plan (1) Pneumonia: Status: Acute (2) Anemia: Status: Acute (3) GI (gastrointestinal bleed): Status: Acute (4) History of lung cancer: Status: Chronic Comment: Right (5) Dyslipidemia: Status: Chronic (6) Atrial fibrillation: Status: Chronic Qualifiers: Atrial fibrillation type: unspecified chronic Qualified Code(s): I48.20 - Chronic atrial fibrillation, unspecified (7) Rash: Status: Chronic (8) COPD exacerbation: Status: Acute Narrative A/P Narrative: Assessment and Plans: 1. Right lower lobe pneumonia, failed outpatient antibiotics therapy (Keflex): Inpatient med surg telemetry Serial lactic acid Procalcitonin level Blood culture, no growth to date cbc w/ auto diff in the morning to trend WBC Respiratory panel negative for CoVID/influenza/RSV Rocephin Zithromax Saline lock 2. Rectal bleeding/lower GI bleeding, likely from hemorrhoid: Status post colonoscopy by Dr. Gresham yesterday who found hemorrhoid as well as colonic polyps. He then performed EGD earlier today which did not found any sites of active GI bleeding. Transfuse another unit of pRBC today cbc daily to trend H/H Protonix PO Hold Eliquis 3. h/o congestive heart failure: Resume Aldactone Saline lock 4. Atrial fibrillation: Propafenone Hold Eliquis Lopressor 5mg IV q1hr PRN SBP>120bpm, hold if SBP<90 and/or DBP<50mmHg 5. h/o lung cancer s/p chemoradiation: Continue to monitor 6. h/o COPD, cannot rule out exacerbation: Azithromycin DuoNEB NEB Prednisone Supplemental oxygen therapy titrate to achieve spo2>=88% 7. Mixed dyslipidemia: Continue statin therapy GI ppx: Protonix PO DVT ppx: SCDs Code status: Limited code: no chest compression Prognosis: Stable Disposition: Inpatient med surg tele Time Spent With Patient Time: Total time spent is greater than 50% in coordination of care (as documented) at patient's floor/unit and/or counseling patient: Subsequent: Total time with patient: 35 - 49 minutes
[2022-09-10] MEDS ORDERED: 0.9 % SODIUM CHLORIDE 250 ML IV SCH (14:45)
[2022-09-10] MEDS: SIMVASTATIN 40 MG TABLET PO SCH (21:16)
[2022-09-11] MEDS: 0.9 % SODIUM CHLORIDE 10 ML SYRINGE IV SCH ×3 (05:54→14:24)
[2022-09-11 07:02] LABS: Basophils # (Auto) 0.01 K/mcL (0.00-0.30); Basophils % (Auto) 0.1 % (0.0-2.0); Eosinophils # (Auto) 0.03 K/mcL (0.00-0.70); Eosinophils % (Auto) 0.3 % (0.0-7.0); Hematocrit 27.8 % (40.1-51.0); Hemoglobin 8.7 g/dL (13.7-17.5); Lymphocytes # (Auto) 1.34 K/mcL (1.50-4.80); Lymphocytes % (Auto) 12.5 % (15.5-49.0); Mean Cell Volume 98.9 fL (80.0-100.0); Mean Corpuscular HGB Conc 31.3 g/dL (31.0-36.0); Mean Platelet Volume 8.3 fL (8.8-12.5); Monocytes # (Auto) 0.91 K/mcL (0.10-0.90); Monocytes % (Auto) 8.5 % (1.0-12.0); Platelet Count 543 K/mcL (140-440); RBC 2.81 M/mcL (4.63-6.08); Red Cell Distribution Width 15.3 % (11.5-14.5); WBC 10.7 K/mcL (4.5-11.0)
[2022-09-11 07:21] LABS: ALT/SGPT 32 U/L (<40); AST/SGOT 28 U/L (<40); Albumin 2.5 gm/dL (3.2-5.2); Albumin/Globulin Ratio 0.8 (1.0-2.3); Alkaline Phosphatase 116 U/L (39-117); Bilirubin,Total 0.2 mg/dL (0.1-1.0); Blood Urea Nitrogen 16 mg/dL (8-23); Calcium 8.5 mg/dL (8.6-10.4); Carbon Dioxide 29 mmol/L (22-30); Chloride 104 mmol/L (96-108); Globulin 3.2 gm/dL (2.2-3.7); Glomerular Filtration Rate 86; Glucose 101 mg/dL (70-105)
[2022-09-11] MEDS: predniSONE 20 MG TABLET PO SCH (08:27)
[2022-09-11] MEDS: CYANOCOBALAMIN (VITAMIN B-12) 500 MCG TABLET PO SCH (08:47)
[2022-09-11] MEDS: PROPAFENONE 150 MG TABLET PO SCH (08:47)
[2022-09-11] MEDS: MULTIVIT,THER IRON,CA,FA & MIN 1 TABLET PO SCH (08:47)
[2022-09-11] MEDS ORDERED: PANTOPRAZOLE 40 MG TABLET PO SCH (09:00)
[2022-09-11] MEDS ORDERED: SPIRONOLACTONE 25 MG TABLET PO SCH (09:00)
[2022-09-11] MEDS: cefTRIAXone 1 GM VIAL IV SCH (10:24)
--- NOTE | 2022-09-11 10:28 | Discharge Summary ---
Discharge Provider Provider IMPORTANT FOLLOW-UP INFORMATION FOR PCP: Patient information: Note initiated : 09/11/22 at 10:25 am Service Date, if different from initiated Date: [] Patient: Sandro Viveros 77 y/o M admitted on 09/10/22 for Possible sepsis-PNA,Rectal Bleeding. Chief Complaint: [] Date of admission: 09/10/22 14:31 Discharge date: 09/11/22 Primary care physician: Juan Craig Attending physician on admission: Percy Cuevas Consults: 09/08/22 17:52 Consult to Physician [CONS] Stat Comment: Consulting Provider: Percy Cuevas Reason For Exam: Physician to Consult 09/08/22 20:56 Consult to Physician [CONS] Routine Comment: rectal bleeding Consulting Provider: Juan Miguel Gresham Reason For Exam: Physician to Consult Attending physician on discharge: Percy Allen Pujavi COURSE Hospital Course Hospital course: Mr. Viveros is a 77 year old M history of lung cancer status post chemoradiation, atrial fibrillation on Eliquis, COPD, dyslipidemia, presenting with 3-week history of shortness of breath, productive cough, fever, chills. He was being diagnosed in outpatient clinic with pneumonia and was being prescribed Keflex fo r 10 days for which he finished the therapy but he still coming of worsening symptoms including shortness of breath, productive cough with clear sputum, subjective fever and chills. He was also having right shoulder pain. [facility] being prescribed additional antibiotics with azithromycin which he just started today. In additions, patient also has experienced black stool bloody stool ever since he started taking Keflex. He is also on Eliquis and he last took it today for atrial fibrillation's. He saw GI specialist Dr. Fletcher who was trying to schedule outpatient elective colonoscopy but it has not happened yet. Vital signs at ED presentation with normal meds. Labs significant for leukocytosis with WBC 13.0. Hemoglobin and hematocrit 7.0 and 22.2, respectively. Serum lactic acid 0.9, procalcitonin level 0.22. Respiratory panel with COVID, influenza a and B, and RSV pending. Chest x-ray showing posterior right lower lobe infiltrate suggesting of new pneumonia. Admission request is called for pneumonia as well as symptomatic rectal bleeding, likely lower GI bleeding. 09/09: Status post 1 unit PRBC transfusions, hemoglobin improved from 7.0-7.6 this morning. No additional episode of black stool or bloody stool. Patient is tolerating room air. Blood culture no growth today. Respiratory panel negative for CoVID/influenza/RSV. WBC down trended from 13.0-10.4. Patient is complaining of shortness of breath, improved relative to yesterday. He is to have cough. He denies any fever chills or diaphoresis. Pending colonoscopy by GI specialist today. Keep the patient n.p.o. with IV fluid. Continue empiric antibiotics with Rocephin and azithromycin while monitoring for blood culture result for pneumonia. Continue prednisone and DuoNeb nebulizer as needed for wheezing for COPD exacerbations. Supplemental oxygen therapy as needed. Overall condition guarded. 09/10: Status post colonoscopy by Dr. Gresham yesterday who found hemorrhoid as well as colonic polyps. He then performed EGD earlier today which did not found any sites of active GI bleeding. Hemoglobin this morning 7.1. Patient is currently on 2 L/min nasal cannula oxygen. He is feeling weak and tired after the procedures. Transfuse 1 unit PRBC today. Switch Protonix from IV twice daily to p.o. daily. Continue to hold Eliquis for now. Saline lock the patient. Okay to feed the patient from medical standpoint whenever GI surgeon is okay and ready for that. Continue empiric antibiotics Rocephin and azithromycin for pneumonia. Overall condition stable. Tentative date of discharge Sunday, September 11, 2022. 09/11: Reached clinical stability. Decision made to discharge home with Rx sent to pharmacy. 1-2 week PCP follow up appointment made for him. All questions were answered prior to patient being physically discharged. Discharge diagnosis: Hemorrhoid bleed, pneumonia, COPD exacerbation Time Spent with Patient Time attestation: Total time spent providing and/or coordinating discharge services: Time spent: Less than 30 minutes EXAM Constitutional Vitals: Temp Pulse Resp BP Pulse Ox O2 Del Method O2 Flow Rate 36.8 C 71 20 135/78 94 Nasal Cannula 2 09/11/22 08:00 09/11/22 08:00 09/11/22 08:00 09/11/22 08:00 09/11/22 08:00 09/11/22 08:00 09/11/22 08:00 General appearance: cooperative and no acute distress Head Head exam: Present atraumatic and normocephalic Eye Eye exam: Present EOMI and PERRL ENT ENT exam: Present mucous membranes moist, normal exam and normal external ear exam Additional comments: Nasal cannula in place Neck Neck exam: Present normal inspection; Absent lymphadenopathy, tenderness or thyromegaly Respiratory Respiratory exam: Present decreased breath sounds; Absent accessory muscle use, respiratory distress or wheezes Cardiovascular Cardiovascular exam: Present irregular rhythm; Absent JVD GI/Abdominal GI/Abdominal exam: Present normal bowel sounds and soft; Absent organomegaly or tenderness Rectal Rectal exam: Present deferred Extremities Exam Extremities exam: Present full ROM, normal capillary refill and normal inspection; Absent tenderness Neurological Exam Neurological exam: Present alert, CN II-XII intact and oriented X3; Absent motor sensory deficit Psychiatric Psychiatric exam: Present normal affect and normal mood; Absent anxious or depressed Skin Skin exam: Present dry and intact Discharge Data Data Completed and Pending Labs on day of discharge: Labs from last 24 hours 09/11/22 09/11/22 05:42 05:41 WBC 10.7 RBC 2.81 L Hgb 8.7 L Hct 27.8 L MCV 98.9 MCH 31.0 MCHC 31.3 RDW 15.3 H Plt Count 543 H MPV 8.3 L Immature Gran % (Auto) 0.6 H Neut % (Auto) 78.0 Lymph % (Auto) 12.5 L [place] % (Auto) 8.5 Eos % (Auto) 0.3 Baso % (Auto) 0.1 Lymph # (Auto) 1.34 L [place] # (Auto) 0.91 H Eos # (Auto) 0.03 Baso # (Auto) 0.01 Immature Gran # 0.06 H Absolute Neutrophils 8.38 H Sodium 137 Potassium 4.2 Chloride 104 Carbon Dioxide 29 Anion Gap 4.0 L BUN 16 Creatinine 0.8 GFR Calculation 86 Glucose 101 Calcium 8.5 L Total Bilirubin 0.2 AST 28 ALT 32 Alkaline Phosphatase 116 Total Protein 5.7 L Albumin 2.5 L Globulin 3.2 Albumin/Globulin Ratio 0.8 L Preliminary micro results at discharge 09/08/22 23:57 Blood Culture - Preliminary Blood 09/08/22 23:51 Blood Culture - Preliminary Blood Discharge Plan Patient/Caregiver Discharge Instructions Activity: increase activity as tolerated Diet: Regular Diet Prescriptions: New prednisone 20 mg Tablet 40 mg PO [facility] Qty: 1 0RF amoxicillin-pot clavulanate [Augmentin XR] 1,000-62.5 mg tablet extended release 12 hr 1 tab PO BID Qty: 6 0RF Continued albuterol sulfate 90 mcg/actuation HFA aerosol inhaler 2 puff inhalation Q6H PRN (Reason: shortness of breath or wheezing) Qty: 8.5 11RF cyanocobalamin (vitamin B-12) 1,000 mcg capsule 1,000 mcg PO QDAY spironolactone 25 mg tablet 25 mg PO QAM multivitamin capsule 1 tab-cap PO QDAY pantoprazole 40 mg tablet,delayed release (DR/EC) 40 mg PO QAM tramadol 50 mg tablet 50 mg PO Q8H PRN (Reason: pain) Qty: 10 0RF ipratropium-albuterol 0.5 mg-3 mg(2.5 mg base)/3 mL solution for nebulization 3 ml INHALATION Q6H PRN (Reason: Shortness Of Breath) rosuvastatin 20 mg tablet 20 mg PO QDAY propafenone 150 mg tablet 150 mg PO BID apixaban 5 mg tablet 5 mg PO BID Breztri Aerosphere 160-9-4.8 mcg/actuation HFA aerosol inhaler 2 inh BID 0RF Discontinued azithromycin [Zithromax Z-Chuy] 250 mg tablet See Rx Instructions .ROUTE .COMPLEX Qty: 6 0RF Rx Instructions: For 250 mg dose pack: take 500 mg today (day 1), then 250 mg for 4 days (days 2-5) Follow Up Plan Follow up with: Juan Craig ARNP [Primary Care Provider] - Patient Disposition: Home, Self-Care Prognosis: Serious Rehab Potential: Good I certify that the patient requires SNF services: No Overall status at discharge: patient is progressing back to baseline Discharge Orders: Discharge Order (Routine); Ordered 09/11/22 Ordered By: Percy Cuevas
--- NOTE | 2022-09-11 13:26 | EGD Procedure Note ---
EGD Procedure Notes Procedure Information Patient information: Note initiated : 09/11/22 at 1:24 pm Patient: Sandro Viveros 77 y/o M admitted on 09/10/22 for Possible sepsis-PNA,Rectal Bleeding. Date of Procedure: 09/10/22 Pre-Op Diagnosis: Dysphagia. Anemia. Abnormal gastric CT. Post-Op Diagnosis: Schatzki's ring. Laurent's esophagus. Hiatal hernia. False positive CT. Procedure: EGD with Guided Dilation Procedure Narrative: The procedure, alternatives and risks were discussed with the patient and the patient's questions were answered. With endoscopist-administered intravenous sedation, the Olympus video endoscope was introduced into the esophagus. The esophagus, stomach, and duodenum were examined sequentially. There is no esophagitis on current therapy. A small tongue (C1 M4) of columnar epithelium was seen above the esophagogastric junction. This was multiply biopsied in order to assess for possible dysplasia. There was a small hiatal h ernia. At the esophagogastric junction, there was a subtle Schatzki's ring narrowing the lumen significantly. Gastric biopsies were taken. There was no gastric wall thickening. No source of bleeding identified. The gastric mucosa, antrum, pyloric ring, and duodenum appeared normal. Antral biopsy was taken for WILLOW test. A guidewire was inserted into the scope. The scope was then withdrawn, leaving the guidewire in place. The esophagus was dilated with an [place] bougie 54 Green[place]ic. Anesthesia: conscious sedation Findings: Schatzki's ring. Laurent's esophagus. Hiatal hernia. False positive CT. Complications: none Surgeon: Juan Miguel Gresham Estimated blood loss: 0 Specimens Removed/Pathology: other Condition: stable Disposition: floor Assessment: Schatzki's ring. Laurent's esophagus. Hiatal hernia. False positive CT. Arrange for [facility] as outpatient.
== END 2022-09-11 14:20 | disposition home or self-care (01) | DRG 190 ==
LOC: ED 14:15 → MEDSUR 14:15
PROVIDERS: ADMIT Internal Medicine; ATTEND Internal Medicine

== ENCOUNTER 2024-03-08 06:25 | Observation (INO) ==
[2024-03-02 16:10] LABS: Basophils # (Auto) 0.06 K/mcL (0.00-0.30); Basophils % (Auto) 0.7 % (0.0-2.0); Eosinophils # (Auto) 0.24 K/mcL (0.00-0.70); Eosinophils % (Auto) 2.9 % (0.0-7.0); Hematocrit 40.5 % (40.1-51.0); Hemoglobin 12.9 g/dL (13.7-17.5); Lymphocytes # (Auto) 1.44 K/mcL (1.50-4.80); Lymphocytes % (Auto) 17.5 % (15.5-49.0); Mean Cell Volume 99.5 fL (80.0-100.0); Mean Corpuscular HGB Conc 31.9 g/dL (31.0-36.0); Monocytes # (Auto) 0.62 K/mcL (0.10-0.90); Monocytes % (Auto) 7.5 % (1.0-12.0); Neutrophils % (Auto) 71.2 % (38.0-78.0); Platelet Count 259 K/mcL (140-440); RBC 4.07 M/mcL (4.63-6.08); Red Cell Distribution Width 12.8 % (11.5-14.5); WBC 8.2 K/mcL (4.5-11.0)
[2024-03-02 16:23] LABS: ALT/SGPT 11 U/L (<40); AST/SGOT 16 U/L (<40); Albumin 4.4 gm/dL (3.2-5.2); Albumin/Globulin Ratio 1.3 (1.0-2.3); Alkaline Phosphatase 86 U/L (39-117); Bilirubin,Total 0.5 mg/dL (0.1-1.0); Blood Urea Nitrogen 13 mg/dL (8-23); Calcium 8.9 mg/dL (8.6-10.4); Carbon Dioxide 29 mmol/L (22-30); Chloride 98 mmol/L (96-108); Globulin 3.5 gm/dL (2.2-3.7); Glomerular Filtration Rate 64; Glucose 86 mg/dL (70-105); Potassium 4.3 mmol/L (3.3-5.1); Sodium 137 mmol/L (133-145)
[2024-03-02 16:29] LABS: INR 1.1 (0.9-1.1)
[2024-03-08] MEDS ORDERED: PHENYLephrine 1 MG/10 ML SYRINGE (ANEST) ONE ×2 (07:08→07:59)
[2024-03-08] MEDS ORDERED: LIDOCAINE 2% PF 5 ML VIAL ONE (07:08)
[2024-03-08] MEDS ORDERED: DEXAMETHASONE 10 MG/ML VIAL ONE (07:08)
[2024-03-08] MEDS ORDERED: METOCLOPRAMIDE 10 MG/2 ML VIAL ONE (07:08)
[2024-03-08] MEDS ORDERED: ONDANSETRON 4 MG/2 ML VIAL ONE (07:08)
[2024-03-08] MEDS ORDERED: KETAMINE 50 MG/ML Syringe IV ONE (07:09)
[2024-03-08] MEDS ORDERED: MIDAZOLAM 2 MG/2 ML VIAL ONE (07:10)
[2024-03-08] MEDS ORDERED: fentaNYL 100 MCG/2 ML VIAL ONE (07:10)
[2024-03-08] MEDS: ceFAZolin 2 GM in DEXTROSE 5% IN WATER 50 ML IV SCH (07:23)
[2024-03-08] MEDS: GELATIN SPONGE,ABSORBABLE 1 EACH SPONGE TOPICAL ONE (08:22)
[2024-03-08] MEDS: THROMBIN (BOVINE) 5,000 UNIT VIAL TOPICAL ONE (08:22)
[2024-03-08] MEDS ORDERED: SUGAMMADEX SODIUM 200 MG/2 ML VIAL IV ONE (08:26)
[2024-03-08] MEDS ORDERED: ONDANSETRON 4 MG/2 ML VIAL IV PRN ×2 (08:41→08:43)
[2024-03-08] MEDS ORDERED: IPRATROPIUM/ALBUTEROL 3 ML AMPUL.NEB NEB PRN (08:43)
[2024-03-08] MEDS ORDERED: NALOXONE HCL 0.4 MG/ML VIAL IV PRN (08:43)
[2024-03-08] MEDS ORDERED: LACTATED RINGERS 1,000 ML IV SCH (08:45)
[2024-03-08] MEDS: fentaNYL 100 MCG/2 ML VIAL IV PRN ×2 (09:09→21:54)
[2024-03-08] MEDS: ACETAMINOPHEN 1,000 MG/100 ML BAG IV SCH (09:39)
[2024-03-08] MEDS: HYDROmorphone 0.5 MG/0.5 ML SYRINGE IV PRN (09:43)
[2024-03-08] MEDS: DEXTROSE 5%-1/2NS 1,000 ML IV SCH (10:24)
[2024-03-08] MEDS: 0.9 % SODIUM CHLORIDE 10 ML SYRINGE IV SCH (13:49)
[2024-03-09 06:08] LABS: Basophils # (Auto) 0.01 K/mcL (0.00-0.30); Basophils % (Auto) 0.1 % (0.0-2.0); Eosinophils # (Auto) 0 K/mcL (0.00-0.70); Eosinophils % (Auto) 0 % (0.0-7.0); Hematocrit 32.7 % (40.1-51.0); Hemoglobin 10.4 g/dL (13.7-17.5); Lymphocytes # (Auto) 0.77 K/mcL (1.50-4.80); Mean Cell Volume 100.3 fL (80.0-100.0); Mean Corpuscular HGB Conc 31.8 g/dL (31.0-36.0); Mean Platelet Volume 9.1 fL (8.8-12.5); Monocytes # (Auto) 0.96 K/mcL (0.10-0.90); Monocytes % (Auto) 6.2 % (1.0-12.0); Neutrophils % (Auto) 88.4 % (38.0-78.0); Platelet Count 216 K/mcL (140-440); RBC 3.26 M/mcL (4.63-6.08); WBC 15.5 K/mcL (4.5-11.0)
[2024-03-09 06:42] LABS: ALT/SGPT 23 U/L (<40); AST/SGOT 31 U/L (<40); Albumin 3.6 gm/dL (3.2-5.2); Albumin/Globulin Ratio 1.3 (1.0-2.3); Alkaline Phosphatase 65 U/L (39-117); Bilirubin,Direct 0.2 mg/dL (<0.3); Bilirubin,Total 0.5 mg/dL (0.1-1.0); Blood Urea Nitrogen 13 mg/dL (8-23); Calcium 8.9 mg/dL (8.6-10.4); Carbon Dioxide 27 mmol/L (22-30); Chloride 100 mmol/L (96-108); Globulin 2.7 gm/dL (2.2-3.7); Glomerular Filtration Rate 81; Glucose 130 mg/dL (70-105); Lactate Dehydrogenase 140 U/L (135-225); Sodium 135 mmol/L (133-145); Triglycerides 54 mg/dL (<150); Uric Acid 3.6 mg/dL (2.5-8.0)
[2024-03-09] MEDS: oxyCODONE IR 5 MG TABLET PO PRN (12:38)
[2024-03-10] MEDS: IPRATROPIUM/ALBUTEROL 3 ML AMPUL.NEB NEB ONE ×2 (04:15→05:07)
[2024-03-10 06:25] LABS: Basophils # (Auto) 0.02 K/mcL (0.00-0.30); Basophils % (Auto) 0.2 % (0.0-2.0); Eosinophils # (Auto) 0.07 K/mcL (0.00-0.70); Eosinophils % (Auto) 0.6 % (0.0-7.0); Hematocrit 31.7 % (40.1-51.0); Lymphocytes # (Auto) 1.19 K/mcL (1.50-4.80); Lymphocytes % (Auto) 10.9 % (15.5-49.0); Mean Corpuscular HGB Conc 31.5 g/dL (31.0-36.0); Monocytes # (Auto) 0.94 K/mcL (0.10-0.90); Monocytes % (Auto) 8.6 % (1.0-12.0); Neutrophils % (Auto) 79.3 % (38.0-78.0); Platelet Count 183 K/mcL (140-440); RBC 3.14 M/mcL (4.63-6.08); Red Cell Distribution Width 12.9 % (11.5-14.5); WBC 10.9 K/mcL (4.5-11.0)
[2024-03-10 07:03] LABS: ALT/SGPT 19 U/L (<40); AST/SGOT 22 U/L (<40); Albumin 3.5 gm/dL (3.2-5.2); Albumin/Globulin Ratio 1.3 (1.0-2.3); Alkaline Phosphatase 62 U/L (39-117); Bilirubin,Direct < 0.2 mg/dL (0-0.3); Bilirubin,Total 0.4 mg/dL (0.1-1.0); Blood Urea Nitrogen 12 mg/dL (8-23); Calcium 8.7 mg/dL (8.6-10.4); Carbon Dioxide 25 mmol/L (22-30); Chloride 99 mmol/L (96-108); Globulin 2.8 gm/dL (2.2-3.7); Glomerular Filtration Rate 85; Glucose 138 mg/dL (70-105); Lactate Dehydrogenase 130 U/L (135-225); Phosphorous 3.1 mg/dL (2.5-4.5); Potassium 3.9 mmol/L (3.3-5.1); Sodium 134 mmol/L (133-145); Triglycerides 49 mg/dL (<150); Uric Acid 2.9 mg/dL (2.5-8.0)
== END 2024-03-10 16:13 | disposition home or self-care (01) ==
LOC: MEDSUR 06:25 → SUR 06:25 → MEDSUR 09:58
PROVIDERS: ADMIT Family Medicine Adult Medicine; ATTEND Family Medicine Adult Medicine